=== PATIENT | male | born 1955 | race Caucasian/White ===

== ENCOUNTER → 2020-08-31 | Outpatient (CLI) | payer OTHER, SELFPAY ==
--- NOTE | 2020-08-31 08:00 | PROSBIL_PTH ---
PATIENT: NICHOLE HOOD LOC: [facility] U#:[id number] AGE/SX: 64/M ROOM: RE08/31/[address]: Dr. Sen Palmre MD : 1955 BED: DIS: 08/31/2020 SPEC #: [id number] RECD: 08/31/20 10:48 STATUS: DORETHA FREDERICK #: [id number] CESAR: 08/31/20 08:[address]: Sen Palmer DEPT: SURGICAL PATHOLOGY RECD BY: Carmina Menezes Tissues: A - PROSTATE RIGHT B - PROSTATE RIGHT C - PROSTATE RIGHT D - PROSTATE LEFT E - PROSTATE LEFT F - PROSTATE LEFT Procedures: PROSTATE BX HEADER OPERATION: Prostate biopsy PRE-OP DIAGNOSIS: Elevated PSA TISSUE SUBMITTED: A - Right apex, B - Right mid, C - Right base, D - Left apex, E - Left mid, F - Left base MICROSCOPIC DIAGNOSIS A. Right prostate, apex, core biopsy: Prostatic tissue, negative for malignancy. B. Right prostate, mid, core biopsy: Prostatic tissue, negative for malignancy. Focal mild acute and chronic inflammation. C. Right prostate, base, core biopsy: Prostatic tissue, negative for malignancy. Focal mild acute and chronic inflammation. D. Left prostate, apex, core biopsy: Prostatic tissue, negative for malignancy. Focal mild acute and chronic inflammation. E. Left prostate, mid, core biopsy: Prostatic tissue, negative for malignancy. F. Left prostate, base, core biopsy: Prostatic tissue, negative for malignancy. Focal mild chronic inflammation. SJ:bal 09/01/2020 MICROSCOPIC DESCRIPTION Slides are reviewed. GROSS DESCRIPTION A - Received is one container designated prostate, right apex. The specimen consists of two elongated fragments of light anna-white soft tissue each measuring 0.5 cm in length and 0.1 cm in diameter. The specimen is totally submitted in one cassette. B - Received is one container designated prostate, right mid. The specimen consists of two elongated fragments of light anna-white soft tissue measuring 0.9 and 1.7 cm in length and 0.1 cm in diameter. The specimen is totally submitted in one cassette. C - Received is one container designated prostate, right base. The specimen consists of two elongated fragments of light anna-white soft tissue each measuring 1 cm in length and 0.1 cm in diameter. The specimen is totally submitted in one cassette. D - Received is one container designated prostate, left apex. The specimen consists of two elongated fragments of light anna-white soft tissue each measuring 0.6 cm in length and 0.1 cm in diameter. The specimen is totally submitted in one cassette. E - Received is one container designated prostate, left mid. The specimen consists of two elongated fragments of light anna-white soft tissue measuring 0.5 and 1 cm in length and 0.1 cm in diameter. The specimen is totally submitted in one cassette. F - Received is one container designated prostate, left base. The specimen consists of two elongated fragments of light anna-white soft tissue each measuring 1 cm in length and 0.1 cm in diameter. The specimen is totally submitted in one cassette. / SJ:rg 08/31/20 TC:3 CPT: 54148 x6
== END | disposition home or self-care (01) ==
LOC: LABSPEC 10:51
PROVIDERS: Referring Provider Urology; Visit Provider Urology
DX: R97.20 Elevated prostate specific antigen [PSA] (principal)
CPT/HCPCS: 88305; G0416

== ENCOUNTER → 2021-05-27 | Outpatient (CLI) | payer OTHER, SELFPAY ==
[2021-05-27 16:28] LABS: PSA,Total- Diagnostic 5.78 ng/mL (0.0-4.0)
== END | disposition home or self-care (01) ==
LOC: LAB 15:30
PROVIDERS: PCP Family Medicine; Visit Provider Urology
DX: R97.20 Elevated prostate specific antigen [PSA] (principal)
CPT/HCPCS: 36415; 84153

== ENCOUNTER → 2021-12-06 | Outpatient (CLI) | payer MEDICARE, OTHER, SELFPAY | END | disposition home or self-care (01) | LOC: LAB 09:33 | PROVIDERS: PCP Family Medicine; Referring Provider Urology; Visit Provider Urology | DX: R97.20 Elevated prostate specific antigen [PSA] (principal) | CPT/HCPCS: 36415; 84153 ==

== ENCOUNTER → 2022-01-05 | Outpatient (CLI) | payer MEDICARE, OTHER, SELFPAY ==
--- NOTE | 2022-01-05 08:03 | MRI_ITS ---
STUDY: MR PELVIS WITH AND WITHOUT CONTRAST (PROSTATE) REASON FOR EXAM: Male, 66 years old. Elevated PSA TECHNIQUE: Standardized multiparametric prostate MRI with T1, T2, DWI/ADC sequences were obtained in 3 orthogonal planes, and dynamic contrast enhancement sequences. 19 ml of clariscan contrast material was administered intravenously for the contrast portion of the examination. . COMPARISON: None. FINDINGS: The prostate volume measures 64 mm3. The contours of the prostate gland are lobulated. There is mass effect on the bladder base. The transition zone is heterogenous. PI-RADS DWI score 2 - Hypointense within a BPH nodule on ADC. PI-RADS T2W score 2 - A mostly encapsulated nodule OR a homogeneous circumscribed nodule without encapsulation (atypical nodule) or a homogeneous mildly hypointense area between nodules.. Contrast enhancement no early or contemporaneous enhancement; or diffuse multifocal enhancement NOT corresponding to a focal finding on T2W and/or DWI or focal ehancement responding to a lesion demonstrating features of BPH onT2WI (including features of extruded BPH in the PZ). The peripheral zone is homogenous. PI-RADS DWI score 1 - No abnormality (normal) on ADC or high b-value DWI. PI-RADS T2W score 1 - Uniformaly hyperintense (normal). Contrast enhancement no early or contemporaneous enhancement; or diffuse multifocal enhancement NOT corresponding to a focal finding on T2W and/or DWI or focal enhancement responding to a lesion demonstrating features of BPH onT2WI (including features of extruded BPH in the PZ). The seminal vesicles demonstrate normal margins and T2 signal pattern. No mass lesion or invasion depicted. The rectoprostatic angles are normal. Urinary bladder is not well distended with diffuse wall thickening and trabeculation. Small bladder diverticulum. The vascular structures of the are normal. The visualized hollow viscus structures are normal. No bone marrow edema or mass lesion depicted. MRI/Pelvis W/WO Contrast IMPRESSION: 1. PIRADS v2.1 2019 -- 2 - Low (clinically significant cancer is unlikely). Electronically Signed: Ad Mullen (Brooks), at 11:41 EST ,
[2022-01-05 08:35] LABS: CREATININE FINGERSTICK < 0.9 mg/dL (0.70-1.30); EGFR FINGERSTICK > 60.0000 mL/min (>60)
== END | disposition home or self-care (01) ==
LOC: MRI 07:58
PROVIDERS: PCP Family Medicine; Referring Provider Urology; Visit Provider Urology
DX: R97.20 Elevated prostate specific antigen [PSA] (principal)
CPT/HCPCS: 72197; A9575

== ENCOUNTER → 2022-02-25 | Outpatient (CLI) | payer MEDICARE, OTHER, SELFPAY ==
[2022-02-25 15:33] LABS: Absolute Lymphocyte Count 1.38 X10^3/uL (0.83-4.51); Absolute Neutrophil Count 8.2 X10^3/uL (2.0-7.7); Basophil# 0.01 X10^3/uL; Basophil% 0.1 % (0-1); Hematocrit 46.6 % (40-54); Hemoglobin 16.2 g/dL (13.0-16.5); Lymphocyte # 1.38 X10^3/ul (0.83-4.51); Lymphocyte % 13.4 % (19-41); Mean Corp Hgb Conc 34.8 g/dL (32-36); Mean Corpuscular Hgb 32.1 pg (27.0-32.0); Mean Corpuscular Volume 92.3 fL (80-94); Mean Platelet Vol. 9.1 fl (6.2-12.0); Monocyte% 6.8 % (0-10); NRBC Flagged by Analyzer 0 % (0-5); Neutrophil # 8.19 X10^3/uL (2.7-7.7); Neutrophil % 79.3 % (47-70); Platelet Count 261 K/mm3 (150-450); RBC Distribution Width CV 11.8 % (11.6-14.6); RBC Distribution Width SD 40.1 fl (35.1-43.9); Red Blood Count 5.05 M/mm3 (4.6-6.2); White Blood Count 10.3 K/mm3 (4.4-11.0)
[2022-02-25 16:19] LABS: ALB/GLOB Ratio 0.9 RATIO (0.9-2.4); AST(SGOT) 48 U/L (15-37); Alanine Aminotransfer ALT/SGPT 42 U/L (16-61); Albumin, Serum 3.8 g/dL (3.2-5.0); Alkaline Phosphatase 101 U/L (45-117); Amylase 43 U/L (25-115); Anion Gap 9 (5-15); BUN 22 mg/dL (7-18); BUN/Creat Ratio 20.6 RATIO (10-20); Calcium,Total 9.4 mg/dL (8.5-10.1); Chloride 102 mmol/L (98-107); Creatinine, Serum 1.07 mg/dL (0.70-1.30); EST Glomerular Filtration Rate 74 mL/min (>60); Est Glom Filt Rate - Afr Amer 89 mL/min (>60); GGTP 173 U/L (15-85); Globulin 4.3 g/dL (2.2-4.2); Glucose 189 mg/dL (74-106); Lipase 109 U/L (73-393); Protein, Total 8.1 g/dL (6.4-8.2); Sodium Level 138 mmol/L (136-145)
== END | disposition home or self-care (01) ==
LOC: LAB 15:08
PROVIDERS: PCP Family Medicine; Visit Provider Nurse Practitioner Adult Health
DX: R10.13 Epigastric pain (principal); R74.8 Abnormal levels of other serum enzymes; K21.9 Gastro-esophageal reflux disease without esophagitis
CPT/HCPCS: 36415; 80053; 82150; 82977; 83690; 85025

== ENCOUNTER → 2022-03-04 | Outpatient (CLI) | payer MEDICARE, OTHER, SELFPAY ==
[2022-03-08 20:03] LABS: Pancreatic Elastase, Fecal 314 (>200)
== END | disposition home or self-care (01) ==
LOC: LABSPEC 09:09
PROVIDERS: PCP Family Medicine; Referring Provider Nurse Practitioner Adult Health; Visit Provider Nurse Practitioner Adult Health
DX: R10.13 Epigastric pain (principal); R74.8 Abnormal levels of other serum enzymes
CPT/HCPCS: 82653

== ENCOUNTER → 2022-03-17 | Outpatient (CLI) | payer MEDICARE, OTHER, SELFPAY ==
--- NOTE | 2022-03-17 08:23 | US_ITS ---
STUDY: ABDOMINAL ULTRASOUND REASON FOR EXAM: Male, 66 years old. Epigastric pain, postprandial -- RUQ TECHNIQUE: Transabdominal ultrasound was performed with real-time and static francis scale imaging. TECHNICAL QUALITY: Adequate. COMPARISON: None. FINDINGS: Liver: The liver measures 17.1 cm. There is increased echogenicity consistent with fatty infiltration. The bile ducts are within normal limits. There is hepatic color flow. The direction of portal flow is hepatopetal. There is no demonstrated mass lesion. Gallbladder: Normal distended gallbladder. The gallbladder wall measures 3.8 mm. There is a negative sonographic Justice''s sign. There is no pericholecystic fluid. There are no gallstones. Sludge seen in the gallbladder lumen. Common Bile Duct (C.B.D.): The common bile duct measures 5.7 mm. Pancreas: Normal size of the head, body and tail of the pancreas. There is normal echogenicity of the pancreas. There is no demonstrated pancreatic mass or cyst. Spleen: Normal size of the spleen. The spleen measures 10.9 cm x 4.5 cm x 3.9 cm. Right Kidney: Normal size of the right kidney. The right kidney measures 12.4 cm x 7 cm x 5.6 cm. Normal renal cortex. The right cortex measures 1.5 cm. There is no demonstrated renal mass or cyst. There is no right hydronephrosis. Left Kidney: Normal size of the left kidney. The left kidney measures 13.4 cm x 6.3 cm x 6.2 cm. Normal renal cortex. The left cortex measures 1.5 cm. There is no demonstrated renal mass or cyst. There is no left hydronephrosis. Aorta: Unremarkable I.V.C.: The IVC is patent. There is no ascites. US/Abdomen Complete IMPRESSION: Borderline hepatomegaly and fatty infiltration of the liver. Sludge is seen in the gallbladder. Electronically Signed: Matias Solorio MD at 13:40 EST ,
== END | disposition home or self-care (01) ==
LOC: US 08:22
PROVIDERS: PCP Family Medicine; Referring Provider Nurse Practitioner Adult Health; Visit Provider Nurse Practitioner Adult Health
DX: R10.13 Epigastric pain (principal); R10.11 Right upper quadrant pain; R74.8 Abnormal levels of other serum enzymes
CPT/HCPCS: 76700

== ENCOUNTER 2022-06-30 05:24 | Day surgery (SDC) | payer MEDICARE, OTHER, SELFPAY ==
[2022-06-30 05:52] VITALS: BP 133/80; PULSE 84; RESP 18; TEMP 36.9; O2SAT 98; BMI 29.0
[2022-06-30] MEDS: Lactated Ringers 1,000 ML 15 ML IV (05:59)
[2022-06-30 06:25] LABS: Bedside Glucose 109 mg/dL (74-106)
--- NOTE | 2022-06-30 06:30 | IMM_PTH ---
PATIENT: NICHOLE HOOD LOC: [facility] U#:[id number] AGE/SX: 66/M ROOM: RE06/30/[address]: Dr. Giovany Bruce DO : 1955 BED: DIS: 06/30/2022 SPEC #: [id number] RECD: 06/30/22 12:58 STATUS: DORETHA REQ #: [id number] CESAR: 06/30/22 06:[address]: Giovany Bruce DEPT: IMMUNOHISTOCHEMISTRY RECD BY: Melva Borjas ENTERED: 06/30/22 12:59 SP TYPE: IMMUNO OTHR DR: Dr. Nirav Lewis DO Tissues: B - Stomach, NOS Procedures: H Pylori (initial) PHYSICIAN & INSTITUTION [place] [id number] SPECIMEN INFORMATION: Tissue Source: B ? Gastric antrum Clinical Info: Epigastric pain, elevated liver enzymes, GERD Specimen Number: [id number] CPT code: 03502 METHODOLOGY: Deparaffinized sections of prefer/formalin-fixed tissue or PAP/DQ stained slides are incubated with monoclonal/polyclonal antibodies/oligonucleotide probes. Localization is made via biotin free immunoperoxidase method. Appropriate controls are performed and reacted as expected. Results on target cell population are indicated in the following table: RESULTS: ANTIBODY / CLONE RESULT Block B H Pylori (polyclonal) negative These tests were developed and their performance characteristics determined by [facility]. They may not have been cleared or approved by the U.S. Food and Drug Administration. The FDA has determined that such clearance or approval is not necessary. The above immunohistochemical/dualISH markers are ordered and reviewed by the Pathologist. INTERPRETATION: B. Gastric antrum, biopsy: Negative for Helicobacter pylori organisms. AM:bal 07/01/2022
--- NOTE | 2022-06-30 06:30 | EGD_PTH ---
PATIENT: NICHOLE HOOD LOC: [facility] U#:[id number] AGE/SX: 66/M ROOM: RE06/30/[address]: Dr. Giovany Bruce DO : 1955 BED: DIS: 06/30/2022 SPEC #: [id number] RECD: 06/30/22 10:05 STATUS: DORETHA RELawosn #: [id number] CESAR: 06/30/22 06:[address]: Giovany Bruce DEPT: SURGICAL PATHOLOGY RECD BY: Carmina Menezes ENTERED: 06/30/22 11:00 SP TYPE: EGD BIOPSY OT DR: Dr. Nirav Lewis DO Tissues: A - Duodenum, NOS B - Gastric mucous membrane C - Esophagus, NOS D - Transverse colon E - COLON BIOPSY Procedures: Special Stain Group II Surgery Specimen Level IV Alcian Blue/PAS (control) HEADER OPERATION: Colonoscopy, EGD ([facility] [place] PRE-OP DIAGNOSIS: Epigastric pain, elevated liver enzymes, GERD TISSUE SUBMITTED: A ? Duodenum biopsy, B ? Gastric antrum biopsy for H. pylori and path, C ? Distal esophagus biopsy, D ? Transverse colon biopsy, E ? Splenic flexure polyp biopsy MICROSCOPIC DIAGNOSIS A. Duodenum, biopsy: No pathologic change. B. Gastric antrum, biopsy: Chronic gastritis. See comment. C. Distal esophagus, biopsy: Gastroesophageal junction with chronic inflammation. Consistent with changes of reflux. No evidence of goblet cell metaplasia. See comment. D. Transverse colon, biopsy: Tubular adenoma. E. Colonic polyp at splenic flexure, biopsy: Tubular adenoma. AM:bal 07/01/2022 COMMENT B. The results of immunohistochemistry for Helicobacter pylori will be reported separately ([id number]). C. Alcian blue/PAS stain with matched control supports the above diagnosis. MICROSCOPIC DESCRIPTION Slides are reviewed. GROSS DESCRIPTION A - Received in fixative is one container labeled with the patient's name and designated duodenum biopsy. The specimen consists of two irregular fragments of light anna soft tissue that in aggregate measure 0.6 x 0.5 x 0.1 cm. The specimen is totally submitted in one cassette. B - Received in fixative is one container labeled with the patient's name and designated gastric antrum biopsy. The specimen consists of two irregular fragments of light anna soft tissue that in aggregate measure 0.6 x 0.4 x 0.1 cm. The specimen is totally submitted in one cassette. C - Received in fixative is one container labeled with the patient's name and designated distal esophagus biopsy. The specimen consists of two irregular fragments of light anna soft tissue that in aggregate measure 0.8 x 0.4 x 0.1 cm. The specimen is totally submitted in one cassette. D - Received in fixative is one container labeled with the patient's name and designated transverse colon biopsy. The specimen consists of one irregular fragment of light anna soft tissue that measures 0.5 x 0.3 x 0.1 cm. The specimen is totally submitted in one cassette. E - Received in fixative is one container labeled with the patient's name and designated splenic flexure polyp biopsy. The specimen consists of multiple irregular fragments of light anna soft tissue that in aggregate measure 1.0 x 0.4 x 0.1 cm. The specimen is totally submitted in one cassette. / SJ:rg 06/30/2022 TC:5 CPT: 16500 x5, 66630
--- NOTE | 2022-06-30 06:39 | HP.PCM_ITS ---
History and Physical Date of Admission: 06/30/22 ?66 M who presents to the office today to establish for recurrent episodes of epigastric pain. Most recent labs showed elevated liver enzymes, he reports this is the first time he has ever had abnormal liver enzymes. His first episode of epigastric pain occurred in late September 2021.? He had eaten a large meal which included barbecue ribs and cheese.? Describes pain as sharp.? He then had diarrhea for approximately 1 week.? He has had recurrent episodes of this epigastric pain which occurs after eating.? Seems to be worse if he eats a large meal.? May have increased burping then.? The severe pain may last an hour but then his stomach can be sore for days.? He also gets diarrhea with these episodes.? He tried decreasing metformin but that did not relieve his symptoms.? He tried stopping omeprazole, noted increased burping but no change in his symptoms otherwise.? He has been on Prilosec for years for heartburn.? At the start of summer 2021 he started a diet and lost approximately 10 pounds intentionally.? He lost more weight because he decreased his intake to try to help with the epigastric pain.? Pain did not radiate initially but has radiated through to the back on at least 1 occasion recently.? No nausea, vomiting, dysphagia.? No melena or hematochezia. No prior EGD. It was recommended he have a colonoscopy every 5 yrs due to brother's hx of colon cancer in his 20s (treated successfully with surgery). His last colonoscopy was approx age 61, had one polyp. ROS Const Constitutional: Positive for weight change; No fatigue ENT ENT: No difficulty swallowing Gastro GI: Positive for bloating, constipation, excessive flatus and Blood in stool; No abdominal pain, belching, change in bowel habits, change in stool character, coffee ground emesis, cramping, diarrhea, heartburn, difficulty swallowing, feeling full early, incontinent of stools, Vomiting blood/hematemesis, loose stools, Black,tarry stools, nausea/dyspepsia, pain with swallowing, vomiting or other Musc Musculoskeletal: No joint pain Skin Skin: No yellowing of the eye or itchy eyes Psych Psychiatric: No anxiety and No depression Endo Endocrine: Positive for weight change; No fatigue Aller/Imm Allergy/Immunologic: No itchy eyes Mike/Lymp Hematologic/Lymphatic: No easy bleeding or easy bruising Exam Const General: cooperative and healthy appearing Nutritional Appearance: overweight Orientation: alert, awake and oriented x3 HENMT Head: normal to inspection Eyes Sclera: sclerae normal Chest Chest palpation & inspection: normal inspection of the chest Resp Effort & Inspection: normal respiratory effort GI Inspection: normal to inspection Palpation: soft, no masses and nontender General: bladder normal to palpation Skin General: no rashes or lesions noted Assessment and Plan Assessment and Plan (1) Epigastric pain: ?Status:?Chronic ?Plan: 66-year-old male with recurrent episodes of postprandial epigastric pain and diarrhea, as well as elevated liver enzymes DDx includes gallbladder disorder, biliary obstruction, EPI We will start with a RUQ US Consider HIDA Consider MRCP Labs today He will be scheduled for EGD and colonoscopy, with follow-up in office 2 weeks later (2) Elevated liver enzymes: ?Status:?Acute ?Plan: See above (3) Gastroesophageal reflux disease: ?Plan: He will continue his omeprazole that he has taken for years ? ? ? Orders: Orders Amylase 02/25/22 R10.13 - Epigastric pain, R74.8 - Abnormal levels of other serum enzymes ? Comprehensive Metabolic Profil 02/25/22 R10.13 - Epigastric pain, R74.8 - Abnormal levels of other serum enzymes ? GGTP 02/25/22 R10.13 - Epigastric pain, R74.8 - Abnormal levels of other serum enzymes ? Lipase 02/25/22 R10.13 - Epigastric pain, R74.8 - Abnormal levels of other serum enzymes ? CBC W/Diff, Automated 02/25/22 K21.9 - Gastro-esophageal reflu x disease without esophagitis, R10.13 - Epigastric pain, R74.8 - Abnormal levels of other serum enzymes ? Pancreatic Elastase, Fecal 02/25/22 R10.13 - Epigastric pain, R74.8 - Abnormal levels of other serum enzymes ? Abdomen Complete 02/25/22 R10.13 - Epigastric pain, R74.8 - Abnormal levels of other serum enzymes ? I have examined the patient and the H&P has been reviewed. There are no clinical changes since date of exam.
[2022-06-30 07:10] VITALS: BP 106/66; BP 133/80; PULSE 64; RESP 18; TEMP 36.7; O2SAT 98
[2022-06-30 07:15] VITALS: BP 111/66; BP 133/80; PULSE 82; RESP 18; O2SAT 97
--- NOTE | 2022-06-30 07:16 | OP.EGD_ITS ---
Patient Name: Yuriy Meneses Procedure Date: 06/30/2022 6:21 AM Date of : 1955 Age: 66 Procedure: Upper GI endoscopy Indications: Epigastric abdominal pain, Heartburn Providers: Giovany Bruce DO Referring MD: Giovany Bruce DO Medicines: Monitored Anesthesia Care Patient Profile: This is a 66 year old male. Refer to note in patient chart for documentation of history and physical. Patient has symptoms of chronic epigastric abdominal pain. Complications: No immediate complications. Procedure: Pre-Anesthesia Assessment: - Prior to the procedure, a History and Physical was performed, and patient medications and allergies were reviewed. The patient is competent. The risks and benefits of the procedure and the sedation options and risks were discussed with the patient. All questions were answered and informed consent was obtained. Patient identification and proposed procedure were verified by the physician in the pre-procedure area. Mental Status Examination: alert and oriented. Airway Examination: normal oropharyngeal airway and neck mobility. Respiratory Examination: clear to auscultation. CV Examination: normal. Prophylactic Antibiotics: The patient does not require prophylactic antibiotics. Prior Anticoagulants: The patient has taken no previous anticoagulant or antiplatelet agents. ASA Grade Assessment: II - A patient with mild systemic disease. After reviewing the risks and benefits, the patient was deemed in satisfactory condition to undergo the procedure. The anesthesia plan was to use monitored anesthesia care (MAC). Immediately prior to administration of medications, the patient was re-assessed for adequacy to receive sedatives. The heart rate, respiratory rate, oxygen saturations, blood pressure, adequacy of pulmonary ventilation, and response to care were monitored throughout the procedure. The physical status of the patient was re-assessed after the procedure. After obtaining informed consent, the endoscope was passed under direct vision. Throughout the procedure, the patient's blood pressure, pulse, and oxygen saturations were monitored continuously. The Colonoscope was introduced through the mouth, and advanced to the second part of duodenum. The upper GI endoscopy was accomplished without difficulty. The patient tolerated the procedure well. Scope In: 6:44:31 AM Scope Out: 6:49:33 AM Total Procedure Duration Time 0 hours 5 minutes 2 seconds Findings: The Z-line was irregular and was found 41 cm from the incisors. Red blood was found in the stomach. Multiple 8 mm pedunculated and sessile polyps with bleeding and stigmata of recent bleeding were found in the gastric body. Coagulation for hemostasis using heater probe was successful. Estimated blood loss was minimal. Patchy mildly erythematous mucosa without bleeding was found in the gastric antrum. Biopsies were taken with a cold forceps for histology. Verification of patient identification for the specimen was done. Estimated blood loss was minimal. The second portion of the duodenum was normal. Biopsies were taken with a cold forceps for histology. Verification of patient identification for the specimen was done. Estimated blood loss was minimal. Impression: - Z-line irregular, 41 cm from the incisors. - Red blood in the stomach. - Multiple gastric polyps. Treated with a heater probe. - Erythematous mucosa in the antrum. Biopsied. - Normal second portion of the duodenum. Biopsied. Recommendation: - Discharge patient to home. - Resume previous diet. - Continue present medications. - Await pathology results. Procedure Code(s): --- Professional --- 74037, 59, Esophagogastroduodenoscopy, flexible, transoral; with control of bleeding, any method 63201, Esophagogastroduodenoscopy, flexible, transoral; with biopsy, single or multiple CPT copyright 2017 [employer]. All rights reserved. The codes documented in this report are preliminary and upon consumer attorney review may be revised to meet current compliance requirements. Giovany Bruce DO 06/30/2022 7:15:11 AM This report has been signed electronically. Number of Addenda: 0 Note Initiated On: 06/30/2022 6:21 AM
--- NOTE | 2022-06-30 07:16 | OP.CCLET_ITS ---
06/30/2022 Nirav Lewis Re : Upper GI endoscopy procedure for Yuriy Edwardsr Debbie This procedure was performed on June. My impressions and recommendations are as follows: Impressions : - Z-line irregular, 41 cm from the incisors. - Red blood in the stomach. - Multiple gastric polyps. Treated with a heater probe. - Erythematous mucosa in the antrum. Biopsied. - Normal second portion of the duodenum. Biopsied. Recommendations : - Discharge patient to home. - Resume previous diet. - Continue present medications. - Await pathology results. My findings are described in the full procedure note, which is enclosed. If I can be of further assistance, please feel free to contact me at . Sincerely, Giovany Bruce, 06/30/2022 7:15:11 AM This report has been signed electronically.
--- NOTE | 2022-06-30 07:19 | OP.CCLET_ITS ---
06/30/2022 Nirav Lewis Re : Colonoscopy procedure for Yuriy Meneses Dear Debbie This procedure was performed on June. My impressions and recommendations are as follows: Impressions : - Two 1 to 2 mm polyps at the splenic flexure and in the transverse colon, removed with a cold snare. Resected and retrieved. - Diverticulosis in the recto-sigmoid colon, in the sigmoid colon and in the ascending colon. - The examination was otherwise normal on direct and retroflexion views. Recommendations : - Discharge patient to home. - Resume previous diet. - Continue present medications. - Await pathology results. - Repeat colonoscopy in 5 years for surveillance. My findings are described in the full procedure note, which is enclosed. If I can be of further assistance, please feel free to contact me at . Sincerely, Giovany Bruce, 06/30/2022 7:18:36 AM This report has been signed electronically.
--- NOTE | 2022-06-30 07:19 | OP.COLON_ITS ---
Patient Name: Yuriy Meneses Procedure Date: 06/30/2022 6:49 AM Date of : 1955 Age: 66 Procedure: Colonoscopy Indications: Screening in patient at increased risk: Family history of 1st-degree relative with colorectal cancer before age 60 years Providers: Giovany Bruce DO Referring MD: Giovany Bruce DO Medicines: Monitored Anesthesia Care Patient Profile: This is a 66 year old male. Refer to note in patient chart for documentation of history and physical. Patient has symptoms of chronic epigastric abdominal pain. Last Colonoscopy: date unknown. Unable to locate last colonoscopy report. Complications: No immediate complications. Procedure: Pre-Anesthesia Assessment: - Prior to the procedure, a History and Physical was performed, and patient medications and allergies were reviewed. The patient is competent. The risks and benefits of the procedure and the sedation options and risks were discussed with the patient. All questions were answered and informed consent was obtained. Patient identification and proposed procedure were verified by the physician in the pre-procedure area. Mental Status Examination: alert and oriented. Airway Examination: normal oropharyngeal airway and neck mobility. Respiratory Examination: clear to auscultation. CV Examination: normal. Prophylactic Antibiotics: The patient does not require prophylactic antibiotics. Prior Anticoagulants: The patient has taken no previous anticoagulant or antiplatelet agents. ASA Grade Assessment: II - A patient with mild systemic disease. After reviewing the risks and benefits, the patient was deemed in satisfactory condition to undergo the procedure. The anesthesia plan was to use monitored anesthesia care (MAC). Immediately prior to administration of medications, the patient was re-assessed for adequacy to receive sedatives. The heart rate, respiratory rate, oxygen saturations, blood pressure, adequacy of pulmonary ventilation, and response to care were monitored throughout the procedure. The physical status of the patient was re-assessed after the procedure. After I obtained informed consent, the scope was passed under direct vision. Throughout the procedure, the patient's blood pressure, pulse, and oxygen saturations were monitored continuously. The Colonoscope was introduced through the anus and advanced to the terminal ileum. The colonoscopy was performed without difficulty. The patient tolerated the procedure well. The quality of the bowel preparation was adequate. Scope In: 6:51:55 AM Scope Withdrawal Time 0 hours 10 minutes 10 seconds Scope Out: 7:06:22 AM Total Procedure Duration Time 0 hours 14 minutes 27 seconds Findings: Two sessile polyps were found in the splenic flexure and transverse colon. The polyps were 1 to 2 mm in size. These polyps were removed with a cold snare. Resection and retrieval were complete. Verification of patient identification for the specimen was done. Estimated blood loss was minimal. A few small and large-mouthed diverticula were found in the recto-sigmoid colon, sigmoid colon and ascending colon. The exam was otherwise without abnormality on direct and retroflexion views. Impression: - Two 1 to 2 mm polyps at the splenic flexure and in the transverse colon, removed with a cold snare. Resected and retrieved. - Diverticulosis in the recto-sigmoid colon, in the sigmoid colon and in the ascending colon. - The examination was otherwise normal on direct and retroflexion views. Recommendation: - Discharge patient to home. - Resume previous diet. - Continue present medications. - Await pathology results. - Repeat colonoscopy in 5 years for surveillance. Procedure Code(s): --- Professional --- 79574, Colonoscopy, flexible; with removal of tumor(s), polyp(s), or other lesion(s) by snare technique CPT copyright 2017 [employer]. All rights reserved. The codes documented in this report are preliminary and upon remote coders review may be revised to meet current compliance requirements. Giovany Bruce DO 06/30/2022 7:18:36 AM This report has been signed electronically. Number of Addenda: 0 Note Initiated On: 06/30/2022 6:49 AM
[2022-06-30 07:20] VITALS: BP 111/66; BP 133/80; PULSE 78; RESP 18; O2SAT 97
[2022-06-30 07:25] VITALS: BP 125/69; BP 133/80; PULSE 74; TEMP 36.8; O2SAT 98
[2022-06-30 07:35] VITALS: BP 133/80
== END 2022-06-30 07:55 | disposition home or self-care (01) ==
LOC: EN 05:24 → AC 05:26
PROVIDERS: PCP Family Medicine; Referring Provider Family Medicine; Visit Provider Internal Medicine Gastroenterology
PROC: 0DJD8ZZ Inspection of Lower Intestinal Tract, Via Natural or Artificial Opening Endoscopic (ICD-10-PCS; CPT 45378; principal; 2022-06-30 06:25)
DX: Z12.11 Encounter for screening for malignant neoplasm of colon (principal); E11.9 Type 2 diabetes mellitus without complications; Z79.84 Long term (current) use of oral hypoglycemic drugs; K57.30 Diverticulosis of large intestine without perforation or abscess without bleeding; Z80.0 Family history of malignant neoplasm of digestive organs; K31.7 Polyp of stomach and duodenum; K21.00 Gastro-esophageal reflux disease with esophagitis, without bleeding; K29.50 Unspecified chronic gastritis without bleeding; D12.3 Benign neoplasm of transverse colon; I10 Essential (primary) hypertension; Z79.899 Other long term (current) drug therapy
CPT/HCPCS: 45385; 43239; 43255; 82962; 88305; 88313; 88342; J7120; J2405

== ENCOUNTER → 2022-07-15 | Outpatient (CLI) | payer MEDICARE, OTHER, SELFPAY ==
[2022-07-15 16:14] LABS: PSA,Total- Diagnostic 4.79 ng/mL (0.0-4.0)
== END | disposition home or self-care (01) ==
PROVIDERS: PCP Family Medicine; Referring Provider Urology; Visit Provider Urology
DX: R97.20 Elevated prostate specific antigen [PSA] (principal)
CPT/HCPCS: 36415; 84153

== ENCOUNTER → 2022-07-27 | Outpatient (CLI) | payer MEDICARE, OTHER, SELFPAY ==
--- NOTE | 2022-07-27 07:52 | NM_ITS ---
CLINICAL: 66-year-old male with history of right upper quadrant abdominal-epigastric pain. RADIONUCLIDE HEPATOBILIARY SCINTIGRAPHY COMPARISON: Abdominal ultrasound report 03/17/2022 FINDINGS: Following the intravenous administration of 5.4 mCi of 99m Tc Mebrofenin, hepatobiliary images reveal: 1. Relatively prompt and homogeneous radiopharmaceutical concentration is noted by a normal sized liver. No parenchymal defects are identified. 2. Gallbladder activity is identified at 30 minutes post radiopharmaceutical administration. 3. Small intestinal tract is not visualized during 60 minutes of pre-CCK sequential imaging. Small bowel activity is identified following the administration of cholecystokinin. 4. Washout of the radiopharmaceutical by the hepatic parenchyma occurs in a normal fashion on qualitative inspection. Cholecystokinin (0.02 ug/kg) was administered intravenously over a 3-minute period. The post CCK gallbladder ejection fraction calculated at 20 minutes following Cholecystokinin administration was noted to be 18.0 % (normal greater than 35%). NM/Hepatobilliary Img w/Pharm Int IMPRESSION: 1. ABNORMAL 99m Tc Mebrofenin hepatobiliary imaging examination with Cholecystokinin. A. A gallbladder ejection fraction calculated to be less than 35% following the administration of Cholecystokinin is consistent with the presence of functional hepatobiliary disease (gallbladder and/or sphincter of Oddi dyskinesia) and/or organic hepatobiliary disease (chronic acalculous cholecystitis and/or cystic duct syndrome) in patients with intermediate to high pretest likelihoods of hepatobiliary illness. (Edvin Starkey et al, Journal of Nuclear Medicine 32:1695, 1991). Electronically Signed: Perez Swenson, at 8:25 EDT ,
== END | disposition home or self-care (01) ==
LOC: NM 07:52
PROVIDERS: PCP Family Medicine; Referring Provider Nurse Practitioner Adult Health; Visit Provider Nurse Practitioner Adult Health
DX: R10.11 Right upper quadrant pain (principal)
CPT/HCPCS: 78227; A9537; J2805

== ENCOUNTER 2022-10-30 14:11 | Inpatient (IN) | payer MEDICARE, OTHER, SELFPAY ==
[2022-10-30 14:15] VITALS: BP 143/92; PULSE 94; RESP 18; TEMP 37.1; O2SAT 97; BMI 30.3
--- NOTE | 2022-10-30 14:51 | CT_ITS ---
EXAM: CT ABDOMEN AND PELVIS WITH INTRAVENOUS CONTRAST CLINICAL INDICATION: jaundice and swelling -- IV PO Contrast TECHNIQUE: Helically acquired images were obtained of the abdomen and pelvis with intravenous contrast. This CT exam was performed using one or more of the following dose reduction techniques: automated exposure control, adjustment of the mA and/or kV according to patient size, and/or use of iterative reconstruction technique. CONTRAST: Oral and amp; IV Gastrografin and amp; 100mL [id number] COMPARISON: Abdominal ultrasound, 03/17/2022. MRI pelvis, 01/05/2022. FINDINGS: LOWER THORAX: No significant abnormality. Lung bases are clear. No cardiomegaly. No significant pericardial effusion. ABDOMEN: LIVER: No significant abnormality. Homogeneous. No focal mass. GALLBLADDER AND BILE DUCTS: Cholelithiasis and gallbladder wall thickening with minimal pericholecystic edema. No intra- or extrahepatic biliary ductal dilation. PANCREAS: No significant abnormality. No focal cystic or solid mass. SPLEEN: No significant abnormality. Normal size without focal cystic or solid mass. ADRENALS: No significant abnormality. No nodules. KIDNEYS AND URETERS: Left kidney extrarenal pelvis. No hydronephrosis. No urolithiasis. Normal renal size and position. STOMACH AND BOWEL: No significant abnormality. No stomach or bowel distention. No focal inflammatory change. PELVIS: APPENDIX: No evidence of acute appendicitis. BLADDER: Left-sided urinary bladder diverticulum. REPRODUCTIVE: Prostatomegaly. ABDOMEN and PELVIS: INTRAPERITONEAL SPACE: No significant abnormality. No ascites or other fluid collection. No free air. BONES/JOINTS: Degenerative changes in the spine, pelvis, and hips. No suspicious lytic or blastic abnormality. SOFT TISSUES: Small fat-containing umbilical hernia. VASCULATURE: No significant abnormality. Abdominal aorta is non-dilated. LYMPH NODES: No significant abnormality. No enlarged lymph nodes. CT/Abdomen/Pelvis WITH Contrast IMPRESSION: 1. Cholelithiasis and gallbladder wall thickening with minimal pericholecystic edema. Findings may be indicative of acute cholecystitis. Correlate clinically and consider right upper quadrant ultrasound. 2. Prostatomegaly. 3. Left-sided urinary bladder diverticulum. Electronically Signed: Devaughn Estrada DO at 16:52 EDT ,
--- NOTE | 2022-10-30 15:06 | EDS_ITS ---
HPI History of Present Illness Chief Complaint: Complaint Informant: patient and spouse/S.O. Narrative Narrative: 67-year-old male presenting to the emergency department the chief complaint of jaundice and abdominal pain. Patient states he has been having gallbladder attacks. He has been seeing gastroenterology (Dr. Bruce). He has had a gallbladder ultrasound endoscopy and most recently a HIDA scan. He had seen Dr. Kaplan for general surgery. The HIDA scan showed decreased ejection fraction and he stated that he was told he will need a cholecystectomy. He does have a history of GERD. The pain has been associated with eating approximately 30 minutes postprandial the patient states he last had a gallbladder attack which she describes as right upper quadrant pain on Monday. He states his urine turned rather dark yesterday and he feels diffuse itching of his skin. Patient and weight loss and weight gain over the past year. He does have a history of diabetes hypertension as well as GERD. At the current time he notes no significant pain. [facility] Medical History Abdominal pain CPAP (continuous positive airway pressure) dependence Diabetes Dietary restriction Epigastric pain GERD (gastroesophageal reflux disease) Glaucoma Hypertension Non-smoker Prostate disease Wears contact lenses Wears hearing aid Home Medications eszopiclone 2 mg tablet (Lunesta) 2 mg PO QHS 12/14/21 [History Last Taken Unknown] lorazepam 2 mg tablet 2 mg PO QHS PRN Sleep 12/14/21 [History Last Taken Unknown] metformin 500 mg tablet 500 mg PO DAILY 12/14/21 [History Last Taken Unknown] atorvastatin 20 mg tablet 20 mg PO DAILY 02/25/22 [History Last Taken Unknown] betamethasone dipropionate 0.05 % topical cream 1 applic topical DAILY PRN Skin Cleansing 02/25/22 [History Last Taken Unknown] dutasteride 0.5 mg capsule 0.5 mg PO DAILY 02/25/22 [History Last Taken Unknown] fluoxetine 10 mg capsule 10 mg PO DAILY 02/25/22 [History Last Taken Unknown] telmisartan 40 mg tablet 40 mg PO QHS 02/25/22 [History Last Taken Unknown] omega 6-odx-kps-fish oil 300 mg-1,000 mg capsule (Fish Oil) 1 cap PO DAILY 04/08/22 [History Last Taken 06/27/22] dorzolamide 2 % eye drops 1 drp EACH EYE BID 06/27/22 [History Last Taken Unknown] latanoprost 0.005 % eye drops 1 drp EACH EYE QPM 06/27/22 [History Last Taken Unknown] timolol maleate 0.25 % eye drops 1 drp EACH EYE BID 06/27/22 [History Last Taken Unknown] pantoprazole 40 mg tablet,delayed release 40 mg PO QHS 06/30/22 [History Last Taken Unknown] dicyclomine 20 mg tablet 20 mg PO TID PRN abdominal pain #60 tabs 07/15/22 [Rx Last Taken Unknown] Allergy/AdvReac Type Severity Reaction Status Date / Time No Known Allergies Allergy Verified 10/30/22 14:14 Family History Father Asthma Mother Diabetes Brother Colon cancer Surgical History Hx of colonoscopy Social History Smoking Status: Never smoker ROS ROS ED Constitutional Constitutional ED: Denies chills, fever(s) or weight loss Eyes Eyes: Denies blurry vision, change in vision or diplopia ENT ENT ED: Denies ear pain, rhinorrhea or sore throat Cardiovascular Cardiovascular: Denies chest pain, orthopnea, palpitations or racing heartbeat Respiratory/Chest Respiratory/Chest: Denies cough, dyspnea or orthopnea Gastrointestinal Gastrointestinal: Reports abdominal pain, nausea and vomiting; Denies con stipation, diarrhea or melena Genitourinary Genitourinary ED: Reports other Details: Dark urine ; Denies dysuria, hematuria or urinary frequency Musculoskeletal Musculoskeletal: Reports back pain; Denies arthralgias or myalgias Integumentary Reports other Details: Skin itching yellowing of skin ; Denies abscess or rash Neurologic Neurologic: Denies headache(s), paresthesias or weakness Psychiatric Psychiatric: Denies anxiety, depression, suicidal ideation or suicidal thoughts Endocrine Endocrinology: Denies polydipsia, polyphagia or polyuria Allergic/Immunologic Allergic/Immunologic ED: Denies mouth swelling, tongue swelling or urticaria EXAM Physical Exam Const Vital Signs: 10/30/22 14:15 10/30/22 16:12 Temperature 98.7 F Temperature Source Temporal Pulse Rate 94 Respiratory Rate 18 18 Blood Pressure 143/92 H Blood Pressure Mean 109 Pulse Ox 97 Oxygen Delivery Method Room Air Positive well nourished and well developed General Appearance ED: well developed HEENT Reports normocephalic, head/scalp atraumatic and moist mucous membranes Eyes PERRL and EOMs intact bilaterally General Eye ED: Yes scleral icterus Neck no lymphadenopathy, supple and no JVD Resp normal respiratory effort and clear to auscultation bilaterally Cardio regular rate, regular rhythm and no murmurs GI normal to inspection, nondistended, normoactive bowel sounds and non-tender Palpation: soft Back/Spine no CVA tenderness and normal ROM Extremity normal to inspection General Extremety ED: Negative for edema General Extremity: Negative for edema Neuro oriented x3 and CN's II-XII intact bilaterally Sensorium / Orientation: alert Motor Exam: strength 5/5 throughout Psych mental status grossly normal Mood & Affect: Negative for depressed or tearful Skin no rashes or lesions noted and no wounds MDM MDM MDM Narrative Medical decision making narrative: White count 7.2. There is evidence of biliary obstruction with a total bilirubin of 5 AST 124 ALT 289 alk phos 297. Lipase slightly elevated at 194 with an amylase of 123. Glucose is elevated at 209 urinalysis shows bilirubin but no overt infection. He has remained pain-free. CT abdomen pelvis was obtained. Please see the radiologist read for that but essentially concern for pericholecystic fluid and gallstones. No obvious pancreatic mass was seen. Formal gallbladder ultrasound was obtained. Please see the radiologist read. Patient has remained pain-free. I spoke with Dr. Lam from general surgery. He is come in and evaluated the patient. We also spoke with Dr. Bruce from gastroenterology. While these consults are being obtained patient received a dose of Zosyn. Our plan will be admission into the hospital under the medical service. Lab Data Attestation: I reviewed the patient's lab results. Labs: Laboratory Results - last 24 hr 10/30/22 10/30/22 15:00 15:59 WBC 7.2 RBC 4.99 Hgb 16.0 Hct 46.7 MCV 93.6 MCH 32.1 H MCHC 34.3 RDW Std Deviation 42.4 RDW Coeff of Tejinder 12.3 Plt Count 250 MPV 9.0 Immature Gran % (Auto) 0.300 Neut % (Auto) 65.9 Lymph % (Auto) 23.5 Bradley % (Auto) 9.0 Eos % (Auto) 1.2 Baso % (Auto) 0.1 Absolute Neuts (auto) 4.8 Absolute Lymphs (auto) 1.70 Nucleated RBC % 0 Sodium 137 Potassium 3.7 Chloride 102 Carbon Dioxide 29.0 Anion Gap 6 BUN 13 Creatinine 1.03 Estim Creat Clear Calc 77.43 Est GFR (MDRD) Af Amer 93 Est GFR (MDRD) Non-Af 77 BUN/Creatinine Ratio 12.6 Glucose 209 H Calcium 8.8 Total Bilirubin 5.00 H Direct Bilirubin 3.94 H AST 124 H ALT 289 H Alkaline Phosphatase 297 H Total Protein 7.1 Albumin 3.6 Globulin 3.5 Amylase 123 H Lipase 194 H Urine Color Yellow Urine Clarity Sl. Cloudy Urine pH 6.0 Ur Specific [place] 1.015 Urine Protein 15 H Urine Glucose (UA) 100 H Urine Ketones Negative Urine Occult Blood Negative Urine Nitrite Negative Urine Bilirubin 3 H Urine Urobilinogen 4 H Ur Leukocyte Esterase 25 H Urine RBC 0 SEEN Urine WBC 0-5 SEEN Ur Squamous Epith Cells 0-5 SEEN Amorphous Sediment 1+ URATE Urine Bacteria 0 SEEN Urine Mucus 0 SEEN Radiography Diagnostic Testing: Clinical Impression(s) from Imaging Studies Abdomen/Pelvis CT 10/30/22 14:51 IMPRESSION: 1. Cholelithiasis and gallbladder wall thickening with minimal pericholecystic edema. Findings may be indicative of acute cholecystitis. Correlate clinically and consider right upper quadrant ultrasound. 2. Prostatomegaly. 3. Left-sided urinary bladder diverticulum. Electronically Signed: Devaughn Estrada DO at 16:52 EDT , Gallbladder Ultrasound 10/30/22 16:40 IMPRESSION: 1. Gallbladder wall thickening, pericholecystic fluid, stones highly suggestive of acute cholecystitis despite a negative sonographic Justice sign. 2. Intrahepatic biliary ductal dilatation is nonspecific. No significant dilation of the common bile duct. Electronically Signed: Devaughn Estrada DO at 18:36 EDT , Differential Diagnosis Abdominal Pain: Appendicitis, Cholecystitis, Pancreatitis and Bowel obstruction Management Discussion w/another healthcare provider: Hospitalist and [employer] (General surgery and gastroenterology) Discharge Plan Dx/Rx/DC Orders Clinical Impression: Diabetes, Jaundice, Biliary obstruction, Cholelithiasis Disposition Disposition: Acute Care Hospital [facility]
[2022-10-30 15:11] LABS: Absolute Neutrophil Count 4.8 X10^3/uL (2.0-7.7); Basophil# 0.01 X10^3/uL; Basophil% 0.1 % (0-1); Eosinophil# 0.09 X10^3/uL; Eosinophils% 1.2 % (0-5); Hematocrit 46.7 % (40-54); Lymphocyte % 23.5 % (19-41); Mean Corp Hgb Conc 34.3 g/dL (32-36); Mean Corpuscular Hgb 32.1 pg (27.0-32.0); Mean Corpuscular Volume 93.6 fL (80-94); Monocyte# 0.65 X10^3/uL; NRBC Flagged by Analyzer 0 % (0-5); Neutrophil # 4.75 X10^3/uL (2.7-7.7); Neutrophil % 65.9 % (47-70); Platelet Count 250 K/mm3 (150-450); RBC Distribution Width CV 12.3 % (11.6-14.6); RBC Distribution Width SD 42.4 fl (35.1-43.9); Red Blood Count 4.99 M/mm3 (4.6-6.2); White Blood Count 7.2 K/mm3 (4.4-11.0)
[2022-10-30 15:37] LABS: AST(SGOT) 124 U/L (15-37); Alanine Aminotransfer ALT/SGPT 289 U/L (16-61); Albumin, Serum 3.6 g/dL (3.2-5.0); Alkaline Phosphatase 297 U/L (45-117); Amylase 123 U/L (25-115); Anion Gap 6 (5-15); BUN 13 mg/dL (7-18); BUN/Creat Ratio 12.6 RATIO (10-20); Bilirubin, Direct 3.94 mg/dL (0.00-0.30); Calcium,Total 8.8 mg/dL (8.5-10.1); Chloride 102 mmol/L (98-107); Creatinine, Serum 1.03 mg/dL (0.70-1.30); EST Glomerular Filtration Rate 77 mL/min (>60); Est Glom Filt Rate - Afr Amer 93 mL/min (>60); Estimated Creatinine Clearance 77.43 ml/min; Globulin 3.5 g/dL (2.2-4.2); Glucose 209 mg/dL (74-106); Lipase 194 U/L (13-75); Potassium 3.7 mmol/L (3.5-5.1); Protein, Total 7.1 g/dL (6.4-8.2); Sodium Level 137 mmol/L (136-145)
[2022-10-30 16:10] LABS: Bacteria 0 SEEN /hpf (None Seen); Mucous, Urine 0 SEEN /hpf (<or=2+); Red Blood Cells-Urine 0 SEEN /hpf (0-5)
[2022-10-30 16:12] VITALS: RESP 18
[2022-10-30 16:16] LABS: Color, Urine Yellow (Yellow); Glucose, Dipstick 100 mg/dl (Normal); Ketone-Dipstick Negative (Negative); Leukocyte Esterase-Dipstick 25 /ul (Negative); Nitrite-Dipstick Negative (Negative); Occult Blood-Urine Negative /ul (Negative); Protein-Dipstick 15 mg/dl (Negative); Specific Gravity, Urine 1.015 (1.002-1.030); Urine Clarity Sl. Cloudy (Clear); Urine Urobilinogen 4 mg/dl (Normal)
[2022-10-30 16:31] LABS: Urine Bilirubin Dipstick 3 mg/dL (Negative)
[2022-10-30 16:35] LABS: White Blood Cells 0-5 SEEN /hpf (0-5)
[2022-10-30 16:36] LABS: Amorphous Sediment 1+ URATE; Squamous Epithelial Cells - UA 0-5 SEEN /hpf (0-5)
--- NOTE | 2022-10-30 16:40 | US_ITS ---
EXAM: US ABDOMEN LIMITED, RIGHT UPPER QUADRANT CLINICAL INDICATION: acute cholecystitis / biliary obstrution TECHNIQUE: Real-time ultrasound of the right upper quadrant with image documentation. COMPARISON: CT abdomen and pelvis on the same date. FINDINGS: LIVER: The liver is moderately enlarged measuring 19 cm. Evidence of intrahepatic biliary ductal dilatation. No focal hepatic abnormality. Diffuse increased echogenicity of the liver. GALLBLADDER: Negative sonographic Justice sign. Multiple gallstones are present. The gallbladder wall is thickened measuring 5.3 mm. Pericholecystic fluid is identified. Apparent layering sludge within the gallbladder lumen is also identified. COMMON BILE DUCT: The common bile duct is normal measuring approximately 5.8 mm in diameter. PANCREAS: Normal as visualized. No focal abnormality is demonstrated in the pancreas. No pancreatic ductal dilatation. RIGHT KIDNEY: No significant abnormality. There is no hydronephrosis. No shadowing calculus. No focal lesion or perinephric collection is demonstrated. US/Gallbladder IMPRESSION: 1. Gallbladder wall thickening, pericholecystic fluid, stones highly suggestive of acute cholecystitis despite a negative sonographic Justice sign. 2. Intrahepatic biliary ductal dilatation is nonspecific. No significant dilation of the common bile duct. Electronically Signed: Devaughn Estrada DO at 18:36 EDT ,
--- NOTE | 2022-10-30 20:10 | EX.PCM.CON.S ---
Assessment & Plan Assessment/Plan (1) Cholelithiasis: (2) Jaundice: (3) Elevated liver enzymes: PLAN: Plan Patient is a 67-year-old male who presents due to observations of dark urine and new jaundice with a clinical picture concerning for possible choledocholithiasis with cholecystitis, however, patient's exam and remainder clinical picture did not completely match this diagnosis. Mr. Hood and his relate a history of epigastric discomfort under evaluation for the last 13 months and a recent episode 2 days ago, however, Mr. Hood has no tenderness on exam today despite significant gallbladder wall thickening and pericholecystic fluid. Further, neither CT imaging nor ultrasound demonstrated a common bile duct stone or even dilatation of the common bile duct. With the patient's hyperbilirubinemia and elevated direct bilirubin I am concerned for a obstructive biliary process, however, with patient's atypical presentation I believe that other etiologies need to be excluded first. Therefore, it is my recommendation patient is admitted to medicine with a consult to gastroenterology. Patient's case was reviewed with fixed assets accountant Dr. Bruce, who is committed to seeing patient for further work-up. This recommendation was shared with the patient along with hand drawings of the relevant anatomy to more fully illustrate the work-up suggested. From a surgical standpoint recommend clear liquid diet tonight and n.p.o. after midnight. Additionally recommend: ? Repeat CMP and lipase in a.m. ? Empiric antibiotic coverage to cover enterics for possible biliary obstruction HPI Consult Data Date of Consult: 10/30/22 HPI Narrative Reason for Consultation: Concern for possible cholecystitis and choledocholithiasis HPI Narrative: NICHOLE HOOD, is a 67 M who presents to [facility] with his due to complaints of dark urine, itchiness, and jaundice. Mr. Hood states that 2 days ago he experienced some epigastric discomfort that was so intense it kept him from sleep, but then it began to spontaneously remit and left him simply itchy. He does recall that there were some chills then yesterday. However, he denies any pain, nausea, vomiting, or chills today. His ER work-up is notable for CBC without leukocytosis and CMP that shows cholestatic pattern to the LFTs with hyperbilirubinemia that is primarily direct at 3.94. CT imaging of the abdomen pelvis showed a thickened gallbladder wall with radiodense stones. Reflex ultrasound showed evidence of gallbladder wall thickening to 5 mm with pericholecystic fluid but the common bile duct was notably normal at 5.8 mm. Mr. Hood and his share that the work-up for his epigastric discomfort has been a long time and coming. Mr. Hood shares that his symptoms began most significantly September 2021. He states that he had the symptoms rather regularly until January 20, 2022 (he notes that he was keeping a log of his symptoms during this time). He then met with Ms. Juarez of gastroenterology February 27, 2022 on referral from his primary care provider Dr. Gastelum due to increased liver enzymes and postprandial pain. At that visit they pursued ultrasound imaging of the gallbladder and also scheduled an EGD and colonoscopy. In the interim, patient was referred to general surgery and saw Dr. Linares on 04/15/2022 for consideration of cholecystectomy. Although her note suggest that cholecystectomy was recommended, Mr. Hood relates that he was told directly that there was significant doubt his pain was fully attributable due to a gallbladder problem. Given this uncertainty and the fact that he enjoyed a period of relative freedom from his symptoms he decided to hold off on surgery. He then underwent the planned EGD and colonoscopy 06/30/2022 where he was noted to have some bleeding gastric polyps and a hiatal hernia. Then on 07/27/2022 he underwent HIDA imaging which showed an abnormal ejection fraction for his gallbladder but, again, he was relatively free of discomfort and decided to await his next gastroenterology visit with Dr. Bruce due November 2022. Mr. Hood has no prior surgical history. He relates that his only procedural history includes several colonoscopies which were done at a shortened interval on account of a family history of colon cancer that was diagnosed in his brother and his third decade (20s) of life. [facility] Medical History Abdominal pain CPAP (continuous positive airway pressure) dependence Diabetes Dietary restriction Epigastric pain GERD (gastroesophageal reflux disease) Glaucoma Hypertension Non-smoker Prostate disease Wears contact lenses Wears hearing aid Home Medications eszopiclone 2 mg tablet (Lunesta) 2 mg PO QHS 12/14/21 [History Last Taken Unknown] lorazepam 2 mg tablet 2 mg PO QHS PRN Sleep 12/14/21 [History Last Taken Unknown] metformin 500 mg tablet 500 mg PO DAILY 12/14/21 [History Last Taken Unknown] atorvastatin 20 mg tablet 20 mg PO DAILY 02/25/22 [History Last Taken Unknown] betamethasone dipropionate 0.05 % topical cream 1 applic topical DAILY PRN Skin Cleansing 02/25/22 [History Last Taken Unknown] dutasteride 0.5 mg capsule 0.5 mg PO DAILY 02/25/22 [History Last Taken Unknown] fluoxetine 10 mg capsule 10 mg PO DAILY 02/25/22 [History Last Taken Unknown] telmisartan 40 mg tablet 40 mg PO QHS 02/25/22 [History Last Taken Unknown] omega 2-mxz-bel-fish oil 300 mg-1,000 mg capsule (Fish Oil) 1 cap PO DAILY 04/08/22 [History Last Taken 06/27/22] dorzolamide 2 % eye drops 1 drp EACH EYE BID 06/27/22 [History Last Taken Unknown] latanoprost 0.005 % eye drops 1 drp EACH EYE QPM 06/27/22 [History Last Taken Unknown] timolol maleate 0.25 % eye drops 1 drp EACH EYE BID 06/27/22 [History Last Taken Unknown] pantoprazole 40 mg tablet,delayed release 40 mg PO QHS 06/30/22 [History Last Taken Unknown] dicyclomine 20 mg tablet 20 mg PO TID PRN abdominal pain #60 tabs 07/15/22 [Rx Last Taken Unknown] Allergy/AdvReac Type Severity Reaction Status Date / Time No Known Allergies Allergy Verified 10/30/22 14:14 Family History Father Asthma Mother Diabetes Brother Colon cancer Surgical History Hx of colonoscopy Social History Smoking Status: Never smoker ROS Constitutional Constitutional: Reports weight loss; Denies fever(s) Gastrointestinal Gastrointestinal: Denies nausea or vomiting Genitourinary Genitourinary: Reports other Details: Dark urine Integumentary Integumentary: Reports jaundice Physical Exam Const alert, oriented x3 and no apparent distress Constitutional Narrative: Clearly jaundiced General Appearance: cooperative Nutritional Appearance: overweight Eyes Sclera: sclera abnormal Positive for bilateral (Icterus) Resp normal respiratory effort GI GI Narrative: No scars, nondistended, soft, nontender to palpation. Negative Justice sign. Lab / Micro Data 10/30/22 15:00 10/30/22 15:00 Labs: Laboratory Results - last 24 hr 10/30/22 15:00: WBC 7.2, RBC 4.99, Hgb 16.0, Hct 46.7, MCV 93.6, MCH 32.1 H, MCHC 34.3, RDW Std Deviation 42.4, RDW Coeff of Tejinder 12.3, Plt Count 250, MPV 9.0, Immature Gran % (Auto) 0.300, Neut % (Auto) 65.9, Lymph % (Auto) 23.5, [place] % (Auto) 9.0, Eos % (Auto) 1.2, Baso % (Auto) 0.1, Absolute Neuts (auto) 4.8, Absolute Lymphs (auto) 1.70, Nucleated RBC % 0, Sodium 137, Potassium 3.7, Chloride 102, Carbon Dioxide 29.0, Anion Gap 6, BUN 13, Creatinine 1.03, Estim Creat Clear Calc 77.43, Est GFR (MDRD) Af Amer 93, Est GFR (MDRD) Non-Af 77, BUN/Creatinine Ratio 12.6, Glucose 209 H, Calcium 8.8, Total Bilirubin 5.00 H, Direct Bilirubin 3.94 H, AST 124 H, ALT 289 H, Alkaline Phosphatase 297 H, Total Protein 7.1, Albumin 3.6, Globulin 3.5, Amylase 123 H, Lipase 194 H 10/30/22 15:59: Urine Color Yellow, Urine Clarity Sl. Cloudy, Urine pH 6.0, Ur Specific [place] 1.015, Urine Protein 15 H, Urine Glucose (UA) 100 H, Urine Ketones Negative, Urine Occult Blood Negative, Urine Nitrite Negative, Urine Bilirubin 3 H, Urine Urobilinogen 4 H, Ur Leukocyte Esterase 25 H, Urine RBC 0 SEEN, Urine WBC 0-5 SEEN, Ur Squamous Epith Cells 0-5 SEEN, Amorphous Sediment 1+ URATE, Urine Bacteria 0 SEEN, Urine Mucus 0 SEEN Radiology Impression Abdomen/Pelvis CT 10/30/22 14:51 IMPRESSION: 1. Cholelithiasis and gallbladder wall thickening with minimal pericholecystic edema. Findings may be indicative of acute cholecystitis. Correlate clinically and consider right upper quadrant ultrasound. 2. Prostatomegaly. 3. Left-sided urinary bladder diverticulum. Electronically Signed: Devaughn Estrada DO at 16:52 EDT , Gallbladder Ultrasound 10/30/22 16:40 IMPRESSION: 1. Gallbladder wall thickening, pericholecystic fluid, stones highly suggestive of acute cholecystitis despite a negative sonographic Justice sign. 2. Intrahepatic biliary ductal dilatation is nonspecific. No significant dilation of the common bile duct. Electronically Signed: Devaughn Estrada DO at 18:36 EDT , Charges/Coding Visit Charges Inpatient E&M: 95462 Init Hosp L2
--- NOTE | 2022-10-30 20:12 | PCM.HP.STD ---
HPI - General General Date of Admission: 10/30/22 Date of Service: 10/30/22 Chief Complaint: Acute cholecystitis HPI Narrative NICHOLE HOOD, is a 67 M with history of hypertension, type 2 diabetes, depression, hyperlipidemia and recurrent epigastric pain with known gallbladder sludge and elevated liver enzymes who presented to [facility] ED on 10/30/2022 with recurrent abdominal pain. Patient seen at bedside in the ED, present. Patient sitting comfortably in bed, conversing normally, no acute distress on my interview. He and state that his pain resolved fairly acutely about 1 hour ago. States he has had these gallbladder attacks fairly consistently now for the past several months. However, it seems like this pain was the worst that he has had and the most persistent. Pain was located in the epigastric to right upper quadrant region. He currently denies any fevers or chills. Denies any other acute pain or discomfort. No other acute concerns. Vitals in ED unremarkable. Labs notable for normal CBC and BMP, AST 124, ALT 289, alk phos 297, total bilirubin 5.0, direct bilirubin 3.9, lipase 194, amylase 123. CT abdomen pelvis shows cholelithiasis and gallbladder wall thickening with some pericholecystic edema. Gallbladder ultrasound also shows gallbladder wall thickening and pericholecystic fluid, with stones highly suggestive of acute cholecystitis despite a negative sonographic Justice sign; also shows nonspecific intrahepatic biliary ductal dilation, no significant dilation of common bile duct. [facility] Medical History Abdominal pain CPAP (continuous positive airway pressure) dependence Diabetes Dietary restriction Epigastric pain GERD (gastroesophageal reflux disease) Glaucoma Hypertension Non-smoker Prostate disease Wears contact lenses Wears hearing aid Home Medications eszopiclone 2 mg tablet (Lunesta) 2 mg PO QHS 12/14/21 [History Last Taken Unknown] lorazepam 2 mg tablet 2 mg PO QHS Sleep 12/14/21 [History Last Taken Unknown] metformin 500 mg tablet 500 mg PO BID diabetes 12/14/21 [History Last Taken Unknown] atorvastatin 20 mg tablet 20 mg PO DAILY 02/25/22 [History Last Taken Unknown] betamethasone dipropionate 0.05 % topical cream 1 applic topical DAILY PRN Skin Cleansing 02/25/22 [History Last Taken Unknown] dutasteride 0.5 mg capsule 0.5 mg PO DAILY 02/25/22 [History Last Taken Unknown] fluoxetine 10 mg capsule 10 mg PO DAILY 02/25/22 [History Last Taken Unknown] telmisartan 40 mg tablet 40 mg PO QHS blood pressure 02/25/22 [History Last Taken Unknown] omega 7-aoe-imz-fish oil 300 mg-1,000 mg capsule (Fish Oil) 1 cap PO DAILY supplement 04/08/22 [History Last Taken 06/27/22] dorzolamide 2 % eye drops 1 drp EACH EYE BID 06/27/22 [History Last Taken Unknown] latanoprost 0.005 % eye drops 1 drp EACH EYE QPM 06/27/22 [History Last Taken Unknown] pantoprazole 40 mg tablet,delayed release 40 mg PO QHS GERD 06/30/22 [History Last Taken Unknown] dicyclomine 20 mg tablet 20 mg PO TID PRN abdominal pain #60 tabs 07/15/22 [Rx Last Taken Unknown] fluticasone propionate 50 mcg/actuation nasal spray,suspension 2 spray intranasal Q12H allergies 10/30/22 [History Last Taken Unknown] loratadine 10 mg tablet (Allergy Relief (loratadine)) 10 mg PO DAILY 10/30/22 [History Last Taken Unknown] Allergy/AdvReac Type Severity Reaction Status Date / Time No Known Allergies Allergy Verified 10/30/22 14:14 Family History Father Asthma Mother Diabetes Brother Colon cancer Surgical History Hx of colonoscopy Social History Smoking Status: Never smoker ROS Constitutional Constitutional: Denies change in weight, chills, fatigue or fever(s) Cardiovascular Cardiovascular: Denies chest pain Respiratory/Chest Respiratory/Chest: Denies cough or shortness of breath at rest Gastrointestinal Gastrointestinal: Reports abdominal pain and nausea; Denies constipation, diarrhea or vomiting Musculoskeletal Musculoskeletal: Denies back pain Vital Signs Vital Signs Vital Signs: 10/30/22 14:15 10/30/22 16:12 Temperature 98.7 F Temperature Source Temporal Pulse Rate 94 Respiratory Rate 18 18 Blood Pressure 143/92 H Blood Pressure Mean 109 Pulse Ox 97 Oxygen Delivery Method Room Air Weight Weight: 101.559 kg Body Mass Index (BMI) 30.3 Physical Exam Const alert, oriented x3, no apparent distress, average body habitus, healthy appearing and well nourished Constitutional Narrative: Pleasant male sitting comfortably in bed, conversing normally, no acute distress. General Appearance: cooperative, comfortable, well kempt and well developed HEENT normocephalic, head/scalp atraumatic, hearing grossly normal bilaterally, nasal mucous membranes and turbinates normal and moist oral mucous membranes Eyes PERRL, EOMs intact bilaterally and conjunctivae normal Neck full ROM, no lymphadenopathy and supple Lymph Lymphatic: no lymphadenopathy noted Chest inspection of chest normal Resp normal respiratory effort, normal air movement, no use of accessory muscles and clear to auscultation bilaterally Cardio regular rate, regular rhythm, no murmurs and peripheral pulses 2+ throughout GI normal to inspection, nondistended, normoactive bowel sounds, soft to palpation, non-tender and non-distended Back/Spine normal ROM Extremity normal to inspection, full ROM and no pedal edema Skin no rashes or lesions noted Psych mental status grossly normal Results Lab / Micro Data 10/30/22 15:00 10/30/22 15:00 Labs: Laboratory Results - last 24 hr 10/30/22 15:00: WBC 7.2, RBC 4.99, Hgb 16.0, Hct 46.7, MCV 93.6, MCH 32.1 H, MCHC 34.3, RDW Std Deviation 42.4, RDW Coeff of Tejinder 12.3, Plt Count 250, MPV 9.0, Immature Gran % (Auto) 0.300, Neut % (Auto) 65.9, Lymph % (Auto) 23.5, [place] % (Auto) 9.0, Eos % (Auto) 1.2, Baso % (Auto) 0.1, Absolute Neuts (auto) 4.8, Absolute Lymphs (auto) 1.70, Nucleated RBC % 0, Sodium 137, Potassium 3.7, Chloride 102, Carbon Dioxide 29.0, Anion Gap 6, BUN 13, Creatinine 1.03, Estim Creat Clear Calc 77.43, Est GFR (MDRD) Af Amer 93, Est GFR (MDRD) Non-Af 77, BUN/Creatinine Ratio 12.6, Glucose 209 H, Calcium 8.8, Total Bilirubin 5.00 H, Direct Bilirubin 3.94 H, AST 124 H, ALT 289 H, Alkaline Phosphatase 297 H, Total Protein 7.1, Albumin 3.6, Globulin 3.5, Amylase 123 H, Lipase 194 H 10/30/22 15:59: Urine Color Yellow, Urine Clarity Sl. Cloudy, Urine pH 6.0, Ur Specific [place] 1.015, Urine Protein 15 H, Urine Glucose (UA) 100 H, Urine Ketones Negative, Urine Occult Blood Negative, Urine Nitrite Negative, Urine Bilirubin 3 H, Urine Urobilinogen 4 H, Ur Leukocyte Esterase 25 H, Urine RBC 0 SEEN, Urine WBC 0-5 SEEN, Ur Squamous Epith Cells 0-5 SEEN, Amorphous Sediment 1+ URATE, Urine Bacteria 0 SEEN, Urine Mucus 0 SEEN Radiology Impression Abdomen/Pelvis CT 10/30/22 14:51 IMPRESSION: 1. Cholelithiasis and gallbladder wall thickening with minimal pericholecystic edema. Findings may be indicative of acute cholecystitis. Correlate clinically and consider right upper quadrant ultrasound. 2. Prostatomegaly. 3. Left-sided urinary bladder diverticulum. Electronically Signed: Devaughn Estrada DO at 16:52 EDT , Gallbladder Ultrasound 10/30/22 16:40 IMPRESSION: 1. Gallbladder wall thickening, pericholecystic fluid, stones highly suggestive of acute cholecystitis despite a negative sonographic Justice sign. 2. Intrahepatic biliary ductal dilatation is nonspecific. No significant dilation of the common bile duct. Electronically Signed: Devaughn Estrada DO at 18:36 EDT , Assessment & Plan Assessment/Plan (1) Acute cholecystitis: PLAN: Plan Patient is a 67-year-old male with history of hypertension, type 2 diabetes, depression, hyperlipidemia and recurrent epigastric pain with known gallbladder sludge and elevated liver enzymes who presented to [facility] ED on 10/30/2022 with recurrent abdominal pain. 1. Acute cholecystitis, elevated liver enzymes Has seen Dr. Bruce with gastroenterology and Dr. Linares with general surgery in the outpatient setting recently. HIDA scan in 07/2022 showed a decreased gallbladder ejection fraction. EGD and colonoscopy were done in 06/2022 with polyps found, otherwise fairly unremarkable. On this presentation, CT abdomen pelvis shows cholelithiasis and gallbladder wall thickening with some pericholecystic edema. Gallbladder ultrasound also shows gallbladder wall thickening and pericholecystic fluid, with stones highly suggestive of acute cholecystitis despite a negative sonographic Justice sign; also shows nonspecific intrahepatic biliary ductal dilation, no significant dilation of common bile duct. Abnormal labs of AST 124, ALT 289, alk phos 297, total bilirubin 5.0, direct bilirubin 3.9, lipase 194, amylase 123. ? Admit under inpatient status to PCU. General surgery evaluated in the ED, recommended n.p.o. at midnight, repeat CMP and lipase in the morning, empiric antibiotic coverage; these orders were placed. GI consulted. LR 75 ml/hr for maintenance fluids. Chronic medical conditions: ? Type 2 diabetes: On home metformin 500 mg twice daily. Glucose 209 on admit. Sliding scale insulin while inpatient. ? Hypertension: Continue home telmisartan 40 mg at night. ? Hyperlipidemia: Holding home statin in setting of elevated liver enzymes as noted above. ? Depression: Continue home fluoxetine, lorazepam at night as needed. DVT prophylaxis: Lovenox CODE STATUS: Full code, verified Expected disposition: Home, TBD Total clinical time spent by myself addressing the patient's medical issues, reviewing all the data, and collaborating with patient's care team: 55 minutes. Charges/Coding Visit Charges Inpatient E&M: 96282 Init Hosp L2
[2022-10-30] MEDS: Piperacil/Tazobactam 3.375 GM in 0.9% Normal Saline (50mL MB+) 50 ML IV (20:24)
[2022-10-30 20:42] VITALS: BP 139/94; PULSE 75; RESP 16; TEMP 37.2; O2SAT 97
[2022-10-30 20:53] LABS: Prothrombin Time (Protime)PT. 13.5 SECONDS (11.7-14.9)
[2022-10-30 21:21] VITALS: BP 139/94; PULSE 75; RESP 16; TEMP 37.2; O2SAT 97
[2022-10-30 23:09] VITALS: BP 156/77; PULSE 95; RESP 18; TEMP 36.9; O2SAT 95; BMI 29.6
[2022-10-30 23:48] LABS: Bedside Glucose 198 mg/dL (74-106)
[2022-10-31] VITALS (7 sets, daily range): BP systolic 141–156; BP diastolic 86–92; PULSE 79–83; RESP 16–18; TEMP 36.8–37.1; O2SAT 95–97
[2022-10-31] MEDS: Lactated Ringers 1,000 ML 75 ML IV ×2 (00:04→13:21)
[2022-10-31] MEDS: Insulin Lispro 100 UNIT/ML INSULN.PEN SC (00:18)
[2022-10-31] MEDS: Pantoprazole Sodium 40 MG Tablet PO ×2 (00:31→22:41)
[2022-10-31] MEDS: LORazepam 1 MG Tablet 2 MG PO ×2 (00:31→22:48)
[2022-10-31] MEDS: Piperacil/Tazobactam 3.375 GM in 0.9% Normal Saline (50mL MB+) 50 ML IV ×3 (05:13→22:42)
[2022-10-31] MEDS: Losartan Potassium 50 MG Tablet PO ×2 (05:14→22:41)
[2022-10-31 05:31] LABS: Hematocrit 43.1 % (40-54); Hemoglobin 14.8 g/dL (13.0-16.5); Mean Corp Hgb Conc 34.3 g/dL (32-36); Mean Corpuscular Hgb 32.3 pg (27.0-32.0); Mean Corpuscular Volume 94.1 fL (80-94); Mean Platelet Vol. 8.9 fl (6.2-12.0); Platelet Count 239 K/mm3 (150-450); RBC Distribution Width CV 12.2 % (11.6-14.6); RBC Distribution Width SD 42.1 fl (35.1-43.9); Red Blood Count 4.58 M/mm3 (4.6-6.2); White Blood Count 8.3 K/mm3 (4.4-11.0)
[2022-10-31 06:05] LABS: Lipase 69 U/L (13-75)
[2022-10-31 06:08] LABS: AST(SGOT) 62 U/L (15-37); Alanine Aminotransfer ALT/SGPT 203 U/L (16-61); Albumin, Serum 3.2 g/dL (3.2-5.0); Alkaline Phosphatase 253 U/L (45-117); Anion Gap 6 (5-15); BUN 15 mg/dL (7-18); BUN/Creat Ratio 17.6 RATIO (10-20); Bilirubin, Direct 0.89 mg/dL (0.00-0.30); Calcium,Total 8.6 mg/dL (8.5-10.1); Chloride 106 mmol/L (98-107); Creatinine, Serum 0.85 mg/dL (0.70-1.30); EST Glomerular Filtration Rate 96 mL/min (>60); Est Glom Filt Rate - Afr Amer 116 mL/min (>60); Estimated Creatinine Clearance 93.83 ml/min; Globulin 3.4 g/dL (2.2-4.2); Glucose 131 mg/dL (74-106); Potassium 3.6 mmol/L (3.5-5.1); Protein, Total 6.6 g/dL (6.4-8.2); Sodium Level 138 mmol/L (136-145)
[2022-10-31 06:35] LABS: Bedside Glucose 144 mg/dL (74-106)
--- NOTE | 2022-10-31 06:52 | MRI_ITS ---
INDICATION: jaundice, abdomen pain EXAMINATION: MRI - MR MRCP W/O Contrast TECHNIQUE: Multiplanar and multisequence MR images of the abdomen were obtained with MRCP sequence. Three-dimensional post-processing reconstructions were performed. IV Contrast Dosage and Agent: None. COMPARISON: CT abdomen and pelvis 10/30/2022 FINDINGS: LIVER: No mass. Normal morphology. GALLBLADDER AND BILIARY TREE: Multiple gallstones. Mild pericholecystic fluid. The CBD measures 5 mm. No intra- or extrahepatic biliary dilation. 4 mm filling defect in the distal common bile duct. PANCREAS: No mass. No pancreatic duct dilation. SPLEEN: Non-enlarged. ADRENAL GLANDS: No nodules. KIDNEYS: Stable prominent left extrarenal pelvis. No hydronephrosis. No mass. LYMPH NODES: No enlarged periportal or retroperitoneal lymph nodes. PERITONEUM: No ascites or fluid collection. VESSELS: Aorta is non-dilated. LOWER CHEST: No pleural effusion. MRI/MRCP Abdomen without Contrast IMPRESSION: Cholelithiasis and choledocholithiasis without abnormal dilatation of the biliary system. Electronically Signed: Sergey Bruno MD at 17:29 EDT ,
--- NOTE | 2022-10-31 08:36 | PCM.PN.SRG ---
Subjective Subjective Patient seen and evaluated during AM rounds. Once again he denies any abdominal discomfort. He states that he is having less itching this morning. Objective Data Objective Data Vital Signs: Vital Signs Temp Pulse Resp BP Pulse Ox O2 Del Method 98.2 F 79 16 141/86 H 97 CPAP 10/31/22 04:00 10/31/22 04:00 10/31/22 04:00 10/31/22 04:00 10/31/22 04:00 10/31/22 04:00 Oxygen Delivery Method CPAP Weight: 218 lb 11.177 oz Body Mass Index (BMI) 29.6 Intake & Output: Intake and Output for Last 24 Hours 10/29/22 10/30/22 10/31/22 23:59 23:59 23:59 Intake Total 50 / 200 300 / 300 Balance 50 / 200 300 / 300 Lab / Micro Data 10/31/22 05:00 10/31/22 05:00 Labs: Laboratory Results - last 24 hr 10/30/22 15:00: WBC 7.2, RBC 4.99, Hgb 16.0, Hct 46.7, MCV 93.6, MCH 32.1 H, MCHC 34.3, RDW Std Deviation 42.4, RDW Coeff of Tejinder 12.3, Plt Count 250, MPV 9.0, Immature Gran % (Auto) 0.300, Neut % (Auto) 65.9, Lymph % (Auto) 23.5, [place] % (Auto) 9.0, Eos % (Auto) 1.2, Baso % (Auto) 0.1, Absolute Neuts (auto) 4.8, Absolute Lymphs (auto) 1.70, Nucleated RBC % 0, Sodium 137, Potassium 3.7, Chloride 102, Carbon Dioxide 29.0, Anion Gap 6, BUN 13, Creatinine 1.03, Estim Creat Clear Calc 77.43, Est GFR (MDRD) Af Amer 93, Est GFR (MDRD) Non-Af 77, BUN/Creatinine Ratio 12.6, Glucose 209 H, Calcium 8.8, Total Bilirubin 5.00 H, Direct Bilirubin 3.94 H, AST 124 H, ALT 289 H, Alkaline Phosphatase 297 H, Total Protein 7.1, Albumin 3.6, Globulin 3.5, Amylase 123 H, Lipase 194 H 10/30/22 15:59: Urine Color Yellow, Urine Clarity Sl. Cloudy, Urine pH 6.0, Ur Specific [place] 1.015, Urine Protein 15 H, Urine Glucose (UA) 100 H, Urine Ketones Negative, Urine Occult Blood Negative, Urine Nitrite Negative, Urine Bilirubin 3 H, Urine Urobilinogen 4 H, Ur Leukocyte Esterase 25 H, Urine RBC 0 SEEN, Urine WBC 0-5 SEEN, Ur Squamous Epith Cells 0-5 SEEN, Amorphous Sediment 1+ URATE, Urine Bacteria 0 SEEN, Urine Mucus 0 SEEN 10/30/22 20:40: PT 13.5, INR 1.0 10/30/22 23:27: POC Glucose 198 H 10/31/22 05:00: WBC 8.3, RBC 4.58 L, Hgb 14.8, Hct 43.1, MCV 94.1 H, MCH 32.3 H, MCHC 34.3, RDW Std Deviation 42.1, RDW Coeff of Tejinder 12.2, Plt Count 239, MPV 8.9, Sodium 138, Potassium 3.6, Chloride 106, Carbon Dioxide 26.0, Anion Gap 6, BUN 15, Creatinine 0.85, Estim Creat Clear Calc 93.83, Est GFR (MDRD) Af Amer 116, Est GFR (MDRD) Non-Af 96, BUN/Creatinine Ratio 17.6, Glucose 131 H, Calcium 8.6, Total Bilirubin 1.80 H, Direct Bilirubin 0.89 H, AST 62 H, ALT 203 H, Alkaline Phosphatase 253 H, Total Protein 6.6, Albumin 3.2, Globulin 3.4, Lipase 69 10/31/22 06:07: POC Glucose 144 H Radiography Diagnostic Testing: Radiology Impression Abdomen/Pelvis CT 10/30/22 14:51 IMPRESSION: 1. Cholelithiasis and gallbladder wall thickening with minimal pericholecystic edema. Findings may be indicative of acute cholecystitis. Correlate clinically and consider right upper quadrant ultrasound. 2. Prostatomegaly. 3. Left-sided urinary bladder diverticulum. Electronically Signed: Devaughn Estrada DO at 16:52 EDT , Gallbladder Ultrasound 10/30/22 16:40 IMPRESSION: 1. Gallbladder wall thickening, pericholecystic fluid, stones highly suggestive of acute cholecystitis despite a negative sonographic Justice sign. 2. Intrahepatic biliary ductal dilatation is nonspecific. No significant dilation of the common bile duct. Electronically Signed: Devaughn VArgelia EstradaDO at 18:36 EDT , Physical Exam Narrative Improved jaundice and scleral icterus Const oriented x3 and no apparent distress Constitutional Narrative: Improved jaundice and scleral icterus Resp normal respiratory effort GI GI Narrative: Nondistended, soft, minimally tender in the right upper quadrant with deep palpation but negative Justice sign Assessment & Plan Assessment/Plan (1) Cholelithiasis: (2) Jaundice: (3) Elevated liver enzymes: PLAN: Plan Patient is a 67-year-old male who presents due to observations of dark urine and new jaundice with a clinical picture concerning for possible choledocholithiasis with cholecystitis, however, patient's exam and remainder clinical picture did not completely match this diagnosis. Fortunately Mr. Meneses has experienced a significant decrease in his liver function testing and bilirubin with this morning's labs in reference to yesterday's emergency department labs. This has come alongside an improvement in his jaundice and symptoms of itching. The spontaneous improvement is suggestive of a transiently obstructive stone that is now passed, but patient remains remarkably nontender for diagnosis of cholelithiasis with cholecystitis. Therefore, I am interested in additional gastroenterology evaluation. Will await the results of this evaluation before further plans of intervention are made. Charges/Coding Visit Charges Inpatient E&M: 19593 Subs Hosp L2
[2022-10-31] MEDS: FLUoxetine 10 MG Capsule PO (09:09)
[2022-10-31] MEDS: 0.9% Saline Lock 10 ML Syringe IV (09:09)
[2022-10-31] MEDS: Enoxaparin 40 MG/0.4 ML Syringe SC (09:09)
--- NOTE | 2022-10-31 09:43 | PCM.PN.HOSP ---
Reason for Visit Reason for Visit: Diagnoses Calculus of gallbladder without cholecystitis without obstruction (10/30/22) Acute cholecystitis (10/30/22) Unspecified jaundice (10/30/22) Abnormal levels of other serum enzymes (10/30/22) Subjective Subjective Feels well. No abdominal pain. Objective Data Objective Data Vital Signs: Vital Signs Temp Pulse Resp BP Pulse Ox O2 Del Method 36.8 C 79 16 141/86 H 97 CPAP 10/31/22 04:00 10/31/22 04:00 10/31/22 04:00 10/31/22 04:00 10/31/22 04:00 10/31/22 04:00 Oxygen Delivery Method CPAP Weight: 99.2 kg Body Mass Index (BMI) 29.6 Intake & Output: Intake and Output for Last 24 Hours 10/29/22 10/30/22 10/31/22 23:59 23:59 23:59 Intake Total 50 / 200 300 / 300 Balance 50 / 200 300 / 300 Lab / Micro Data 10/31/22 05:00 10/31/22 05:00 Labs: Laboratory Results - last 24 hr 10/30/22 15:00: WBC 7.2, RBC 4.99, Hgb 16.0, Hct 46.7, MCV 93.6, MCH 32.1 H, MCHC 34.3, RDW Std Deviation 42.4, RDW Coeff of Tejinder 12.3, Plt Count 250, MPV 9.0, Immature Gran % (Auto) 0.300, Neut % (Auto) 65.9, Lymph % (Auto) 23.5, [place] % (Auto) 9.0, Eos % (Auto) 1.2, Baso % (Auto) 0.1, Absolute Neuts (auto) 4.8, Absolute Lymphs (auto) 1.70, Nucleated RBC % 0, Sodium 137, Potassium 3.7, Chloride 102, Carbon Dioxide 29.0, Anion Gap 6, BUN 13, Creatinine 1.03, Estim Creat Clear Calc 77.43, Est GFR (MDRD) Af Amer 93, Est GFR (MDRD) Non-Af 77, BUN/Creatinine Ratio 12.6, Glucose 209 H, Calcium 8.8, Total Bilirubin 5.00 H, Direct Bilirubin 3.94 H, AST 124 H, ALT 289 H, Alkaline Phosphatase 297 H, Total Protein 7.1, Albumin 3.6, Globulin 3.5, Amylase 123 H, Lipase 194 H 10/30/22 15:59: Urine Color Yellow, Urine Clarity Sl. Cloudy, Urine pH 6.0, Ur Specific [place] 1.015, Urine Protein 15 H, Urine Glucose (UA) 100 H, Urine Ketones Negative, Urine Occult Blood Negative, Urine Nitrite Negative, Urine Bilirubin 3 H, Urine Urobilinogen 4 H, Ur Leukocyte Esterase 25 H, Urine RBC 0 SEEN, Urine WBC 0-5 SEEN, Ur Squamous Epith Cells 0-5 SEEN, Amorphous Sediment 1+ URATE, Urine Bacteria 0 SEEN, Urine Mucus 0 SEEN 10/30/22 20:40: PT 13.5, INR 1.0 10/30/22 23:27: POC Glucose 198 H 10/31/22 05:00: WBC 8.3, RBC 4.58 L, Hgb 14.8, Hct 43.1, MCV 94.1 H, MCH 32.3 H, MCHC 34.3, RDW Std Deviation 42.1, RDW Coeff of Tejinder 12.2, Plt Count 239, MPV 8.9, Sodium 138, Potassium 3.6, Chloride 106, Carbon Dioxide 26.0, Anion Gap 6, BUN 15, Creatinine 0.85, Estim Creat Clear Calc 93.83, Est GFR (MDRD) Af Amer 116, Est GFR (MDRD) Non-Af 96, BUN/Creatinine Ratio 17.6, Glucose 131 H, Calcium 8.6, Total Bilirubin 1.80 H, Direct Bilirubin 0.89 H, AST 62 H, ALT 203 H, Alkaline Phosphatase 253 H, Total Protein 6.6, Albumin 3.2, Globulin 3.4, Lipase 69 10/31/22 06:07: POC Glucose 144 H Radiography Diagnostic Testing: Radiology Impression Abdomen/Pelvis CT 10/30/22 14:51 IMPRESSION: 1. Cholelithiasis and gallbladder wall thickening with minimal pericholecystic edema. Findings may be indicative of acute cholecystitis. Correlate clinically and consider right upper quadrant ultrasound. 2. Prostatomegaly. 3. Left-sided urinary bladder diverticulum. Electronically Signed: Devaughn Estrada DO at 16:52 EDT , Gallbladder Ultrasound 10/30/22 16:40 IMPRESSION: 1. Gallbladder wall thickening, pericholecystic fluid, stones highly suggestive of acute cholecystitis despite a negative sonographic Justice sign. 2. Intrahepatic biliary ductal dilatation is nonspecific. No significant dilation of the common bile duct. Electronically Signed: Devaughn Estrada, at 18:36 EDT , Physical Exam Const alert and no apparent distress HEENT head/scalp atraumatic and moist oral mucous membranes Cardio regular rate, regular rhythm, S1 normal heart sound and S2 normal heart sound GI normal to inspection, nondistended, normoactive bowel sounds, soft to palpation, non-tender and non-distended Extremity normal to inspection Assessment & Plan Assessment/Plan (1) Acute cholecystitis: PLAN: CT shows: cholelithiasis and GB wall thickening w minimal pericholecystic edema. US: GB wall thickening, perichoecystic fluid, stones highly suggestive of acute cholecystis Seen by GS and requests GI eval abx w pip/tazo PLAN: Plan Chronic medical conditions: ? Type 2 diabetes: On home metformin 500 mg twice daily. Glucose 209 on admit. Sliding scale insulin while inpatient. ? Hypertension: Continue home telmisartan 40 mg at night. ? Hyperlipidemia: Holding home statin in setting of elevated liver enzymes as noted above. ? Depression: Continue home fluoxetine, lorazepam at night as needed. DVT prophylaxis: Lovenox CODE STATUS: Full code, verified Expected disposition: Home, TBD Charges/Coding Visit Charges Inpatient E&M: 06730 Subs Hosp L2
[2022-10-31] MEDS: Fluticasone 0.05% 1 SPRAY NASAL.SRY 2 SPRAY NASAL ×2 (11:24→22:41)
[2022-10-31] MEDS: Loratadine 10 MG Tablet PO (11:25)
[2022-10-31 11:58] LABS: Bedside Glucose 119 mg/dL (74-106)
--- NOTE | 2022-10-31 13:28 | CON.PCM.GI_ITS ---
HPI Consult Data Date of Consult: 10/31/22 Attending Care Provider: cholestatic jaundice HPI Narrative Reason for Consultation: cholestatic jaundice HPI Narrative: NICHOLE HOOD, is a 67 M who presents with itching and jaundice. He has a history of hypertension, type 2 diabetes, depression, hyperlipidemia and recurrent epigastric pain with known gallbladder sludge and elevated liver enzy mes who presented to [facility] ED on 10/30/2022 with recurrent abdominal pain. Patient seen at bedside in the ED, present. Patient sitting comfortably in bed, conversing normally, no acute distress on my interview. He and state that his pain resolved fairly acutely about 1 hour ago. States he has had these gallbladder attacks fairly consistently now for the past several months. However, it seems like this pain was the worst that he has had and the most persistent. Pain was located in the epigastric to right upper quadrant region. He currently denies any fevers or chills. Denies any other acute pain or discomfort. No other acute concerns. Vitals in ED unremarkable. Labs notable for normal CBC and BMP, AST 124, ALT 289, alk phos 297, total bilirubin 5.0, direct bilirubin 3.9, lipase 194, amylase 123. CT abdomen pelvis shows cholelithiasis and gallbladder wall thickening with some pericholecystic edema. Gallbladder ultrasound also shows gallbladder wall thickening and pericholecystic fluid, with stones highly suggestive of acute cholecystitis despite a negative sonographic Justice sign; also shows nonspecific intrahepatic biliary ductal dilation, no significant dilation of common bile duct. [facility] Medical History Abdominal pain CPAP (continuous positive airway pressure) dependence Diabetes Dietary restriction Epigastric pain GERD (gastroesophageal reflux disease) Glaucoma Hypertension Non-smoker Prostate disease Wears contact lenses Wears hearing aid Home Medications eszopiclone 2 mg tablet (Lunesta) 2 mg PO QHS 12/14/21 [History Last Taken Unknown] lorazepam 2 mg tablet 2 mg PO QHS Sleep 12/14/21 [History Last Taken Unknown] metformin 500 mg tablet 500 mg PO BID diabetes 12/14/21 [History Last Taken Unknown] atorvastatin 20 mg tablet 20 mg PO DAILY 02/25/22 [History Last Taken Unknown] betamethasone dipropionate 0.05 % topical cream 1 applic topical DAILY PRN Skin Cleansing 02/25/22 [History Last Taken Unknown] dutasteride 0.5 mg capsule 0.5 mg PO DAILY 02/25/22 [History Last Taken Unknown] fluoxetine 10 mg capsule 10 mg PO DAILY 02/25/22 [History Last Taken Unknown] telmisartan 40 mg tablet 40 mg PO QHS blood pressure 02/25/22 [History Last Taken Unknown] omega 1-xzu-ekg-fish oil 300 mg-1,000 mg capsule (Fish Oil) 1 cap PO DAILY supplement 04/08/22 [History Last Taken 06/27/22] dorzolamide 2 % eye drops 1 drp EACH EYE BID 06/27/22 [History Last Taken Unknow n] latanoprost 0.005 % eye drops 1 drp EACH EYE QPM 06/27/22 [History Last Taken Unknown] pantoprazole 40 mg tablet,delayed release 40 mg PO QHS GERD 06/30/22 [History Last Taken Unknown] dicyclomine 20 mg tablet 20 mg PO TID PRN abdominal pain #60 tabs 07/15/22 [Rx Last Taken Unknown] fluticasone propionate 50 mcg/actuation nasal spray,suspension 2 spray intranasal Q12H allergies 10/30/22 [History Last Taken Unknown] loratadine 10 mg tablet (Allergy Relief (loratadine)) 10 mg PO DAILY 10/30/22 [History Last Taken Unknown] Allergy/AdvReac Type Severity Reaction Status Date / Time No Known Allergies Allergy Verified 10/30/22 14:14 Family History Father Asthma Mother Diabetes Brother Colon cancer Surgical History Hx of colonoscopy Social History Smoking Status: Never smoker ROS Constitutional Constitutional: Denies change in weight, chills, fatigue or fever(s) Cardiovascular Cardiovascular: Denies chest pain Respiratory/Chest Respiratory/Chest: Denies cough or shortness of breath at rest Gastrointestinal Gastrointestinal: Reports abdominal pain and nausea; Denies constipation, diarrhea or vomiting Musculoskeletal Musculoskeletal: Denies back pain Physical Exam Const alert, oriented x3, no apparent distress, average body habitus, healthy ap pearing and well nourished Constitutional Narrative: Pleasant male sitting comfortably in bed, conversing normally, no acute distress. General Appearance: cooperative, comfortable, well kempt and well developed HEENT normocephalic, head/scalp atraumatic, hearing grossly normal bilaterally, nasal mucous membranes and turbinates normal and moist oral mucous membranes Eyes PERRL, EOMs intact bilaterally and conjunctivae normal Neck full ROM, no lymphadenopathy and supple Lymph Lymphatic: no lymphadenopathy noted Chest inspection of chest normal Resp normal respiratory effort, normal air movement, no use of accessory muscles and clear to auscultation bilaterally Cardio regular rate, regular rhythm, no murmurs and peripheral pulses 2+ throughout GI normal to inspection, nondistended, normoactive bowel sounds, soft to palpation, non-tender and non-distended Back/Spine normal ROM Extremity normal to inspection, full ROM and no pedal edema Skin no rashes or lesions noted Psych mental status grossly normal Lab / Micro Data 10/31/22 05:00 10/31/22 05:00 Labs: Laboratory Results - last 24 hr 10/30/22 15:00: WBC 7.2, RBC 4.99, Hgb 16.0, Hct 46.7, MCV 93.6, MCH 32.1 H, MCHC 34.3, RDW Std Deviation 42.4, RDW Coeff of Tejinder 12.3, Plt Count 250, MPV 9.0, Immature Gran % (Auto) 0.300, Neut % (Auto) 65.9, Lymph % (Auto) 23.5, [place] % (Auto) 9.0, Eos % (Auto) 1.2, Baso % (Auto) 0.1, Absolute Neuts (auto) 4.8, Absolute Lymphs (auto) 1.70, Nucleated RBC % 0, Sodium 137, Potassium 3.7, Chloride 102, Carbon Dioxide 29.0, Anion Gap 6, BUN 13, Creatinine 1.03, Estim Creat Clear Calc 77.43, Est GFR (MDRD) Af Amer 93, Est GFR (MDRD) Non-Af 77, BU N/Creatinine Ratio 12.6, Glucose 209 H, Calcium 8.8, Total Bilirubin 5.00 H, Direct Bilirubin 3.94 H, AST 124 H, ALT 289 H, Alkaline Phosphatase 297 H, Total Protein 7.1, Albumin 3.6, Globulin 3.5, Amylase 123 H, Lipase 194 H 10/30/22 15:59: Urine Color Yellow, Urine Clarity Sl. Cloudy, Urine pH 6.0, Ur Specific [place] 1.015, Urine Protein 15 H, Urine Glucose (UA) 100 H, Urine Ketones Negative, Urine Occult Blood Negative, Urine Nitrite Negative, Urine Bilirubin 3 H, Urine Urobilinogen 4 H, Ur Leukocyte Esterase 25 H, Urine RBC 0 SEEN, Urine WBC 0-5 SEEN, Ur Squamous Epith Cells 0-5 SEEN, Amorphous Sediment 1+ URATE, Urine Bacteria 0 SEEN, Urine Mucus 0 SEEN 10/30/22 20:40: PT 13.5, INR 1.0 10/30/22 23:27: POC Glucose 198 H 10/31/22 05:00: WBC 8.3, RBC 4.58 L, Hgb 14.8, Hct 43.1, MCV 94.1 H, MCH 32.3 H, MCHC 34.3, RDW Std Deviation 42.1, RDW Coeff of Tejinder 12.2, Plt Count 239, MPV 8.9, Sodium 138, Potassium 3.6, Chloride 106, Carbon Dioxide 26.0, Anion Gap 6, BUN 15, Creatinine 0.85, Estim Creat Clear Calc 93.83, Est GFR (MDRD) Af Amer 116, Est GFR (MDRD) Non-Af 96, BUN/Creatinine Ratio 17.6, Glucose 131 H, Calcium 8.6, Total Bilirubin 1.80 H, Direct Bilirubin 0.89 H, AST 62 H, ALT 203 H, Alkaline Phosphatase 253 H, Total Protein 6.6, Albumin 3.2, Globulin 3.4, Lipase 69 10/31/22 06:07: POC Glucose 144 H 10/31/22 11:28: POC Glucose 119 H Radiology Impression Abdomen/Pelvis CT 10/30/22 14:51 IMPRESSION: 1. Cholelithiasis and gallbladder wall thickening with minimal pericholecystic edema. Findings may be indicative of acute cholecystitis. Correlate clinically and consider right upper quadrant ultrasound. 2. Prostatomegaly. 3. Left-sided urinary bladder diverticulum. Electronically Signed: Devaughn Estrada DO at 16:52 EDT , Gallbladder Ultrasound 10/30/22 16:40 IMPRESSION: 1. Gallbladder wall thickening, pericholecystic fluid, stones highly suggestive of acute cholecystitis despite a negative sonographic Justice sign. 2. Intrahepatic biliary ductal dilatation is nonspecific. No significant dilation of the common bile duct. Electronically Signed: Devaughn Estrada, at 18:36 EDT , Assessment & Plan Assessment/Plan (1) Acute cholecystitis: PLAN: Plan Patient is a 67-year-old male with history of hypertension, type 2 diabetes, depression, hyperlipidemia and recurrent epigastric pain with known gallbladder sludge and elevated liver enzymes who presented to [facility] ED on 10/30/2022 with recurrent abdominal pain. Acute cholecystitis, elevated liver enzymes The differential diagnosis for his cholestatic jaundice with elevated amylase and lipase is choledocholithiasis, less likely medication induced injury, ascending cholangitis, Mirizzi syndrome. His LFTs are improving. I would recommend MRCP to evaluate his hepatobiliary system. Continue IV fluids and recheck amylase, lipase. Check ESR, CRP. Check acute hepatitis profile. CT abdomen pelvis shows cholelithiasis and gallbladder wall thickening with some pericholecystic edema. Gallbladder ultrasound also shows gallbladder wall thickening and pericholecystic fluid, with stones highly suggestive of acute cholecystitis despite a negative sonographic Justice sign; also shows nonspecific intrahepatic biliary ductal dilation, no significant dilation of common bile duct. Abnormal labs of AST 124, ALT 289, alk phos 297, total bilirubin 5.0, direct bilirubin 3.9, lipase 194, amylase 123. ? Admit under inpatient status to PCU. Charges/Coding Visit Charges Inpatient E&M: 94823 Init Hosp L3
--- NOTE | 2022-10-31 14:45 | CASEMGMT ---
RN CM Face to Face with patient for initial transition planning/care coordination assessment. RN CM introduced self and role at [facility]. Patient lying in bed, alert and oriented, at bedside. Patient willing to participate in assessment and is able to answer all questions appropriately. Care providers, pharmacy, and demographics verified. Patient wishes to discharge home, denies need for home health at this time. Patient states he has no further needs or concerns at this time. CM to follow for discharge planning needs that may arise. PCP: Debbie Specialists: [facility] urologist Preferred Pharmacy: [facility] at discharge. Insurance: [employer] Prescription Benefit: yes Living Will/HPOA: none LNOK: , daughter Living Arrangements: Patient lives with in a single story home with 2 steps and railing to enter the home. Patient states he is independent at home. Transportation: self, DME/HHC: Patient has cpap at home. No previous HHC or SNF. Disposition Plan: Patient to discharge home with family support and follow-up plans in place. Miranda TOLBERT, RN, CM
[2022-10-31 16:58] LABS: Bedside Glucose 99 mg/dL (74-106)
[2022-10-31 21:35] LABS: Bedside Glucose 169 mg/dL (74-106)
[2022-11-01] VITALS (13 sets, daily range): BP systolic 140–160; BP diastolic 73–90; PULSE 69–93; RESP 14–18; TEMP 36.6–37.1; O2SAT 91–99; BMI 29.6
[2022-11-01] MEDS: Lactated Ringers 1,000 ML 75 ML IV (03:28)
[2022-11-01] MEDS: Piperacil/Tazobactam 3.375 GM in 0.9% Normal Saline (50mL MB+) 50 ML IV ×2 (05:40→18:52)
[2022-11-01 06:47] LABS: Absolute Lymphocyte Count 1.53 X10^3/uL (0.83-4.51); Absolute Neutrophil Count 3.7 X10^3/uL (2.0-7.7); Basophil# 0.01 X10^3/uL; Basophil% 0.2 % (0-1); Eosinophil# 0.16 X10^3/uL; Eosinophils% 2.7 % (0-5); Hematocrit 41.8 % (40-54); Hemoglobin 14.9 g/dL (13.0-16.5); Lymphocyte # 1.53 X10^3/ul (0.83-4.51); Lymphocyte % 25.4 % (19-41); Mean Corp Hgb Conc 35.6 g/dL (32-36); Mean Corpuscular Hgb 33.4 pg (27.0-32.0); Mean Corpuscular Volume 93.7 fL (80-94); Monocyte# 0.65 X10^3/uL; Monocyte% 10.8 % (0-10); NRBC Flagged by Analyzer 0 % (0-5); Neutrophil # 3.67 X10^3/uL (2.7-7.7); Neutrophil % 60.7 % (47-70); Platelet Count 231 K/mm3 (150-450); RBC Distribution Width CV 12.1 % (11.6-14.6); Red Blood Count 4.46 M/mm3 (4.6-6.2)
[2022-11-01 06:56] LABS: Bedside Glucose 132 mg/dL (74-106)
[2022-11-01 07:20] LABS: AST(SGOT) 40 U/L (15-37); Alanine Aminotransfer ALT/SGPT 141 U/L (16-61); Albumin, Serum 3.1 g/dL (3.2-5.0); Alkaline Phosphatase 199 U/L (45-117); Anion Gap 5 (5-15); BUN 14 mg/dL (7-18); Bilirubin, Direct 0.71 mg/dL (0.00-0.30); Calcium,Total 8.5 mg/dL (8.5-10.1); Chloride 107 mmol/L (98-107); Creatinine, Serum 0.82 mg/dL (0.70-1.30); EST Glomerular Filtration Rate 99 mL/min (>60); Est Glom Filt Rate - Afr Amer 120 mL/min (>60); Estimated Creatinine Clearance 97.26 ml/min; Globulin 3.4 g/dL (2.2-4.2); Glucose 122 mg/dL (74-106); Potassium 3.9 mmol/L (3.5-5.1); Protein, Total 6.5 g/dL (6.4-8.2); Sodium Level 138 mmol/L (136-145)
--- NOTE | 2022-11-01 08:32 | PN.SURG_ITS ---
Subjective Subjective Patient seen and examined during AM rounds. He is found resting in bed. He denies any specific complaints. He does report that his itching is better today. Objective Data Objective Data Vital Signs: Vital Signs Temp Pulse Resp BP Pulse Ox O2 Del Method 98.5 F 80 18 145/79 H 96 Room Air 11/01/22 04:00 11/01/22 04:00 11/01/22 04:00 11/01/22 04:00 11/01/22 04:00 11/01/22 08:15 Oxygen Delivery Method Room Air Weight: 218 lb 11.177 oz Body Mass Index (BMI) 29.6 Intake & Output: Intake and Output for Last 24 Hours 10/30/22 10/31/22 11/01/22 23:59 23:59 23:59 Intake Total 50 / 200 1396.25 / 1696.25 1350 / 1350 Balance 50 / 200 1396.25 / 1696.25 1350 / 1350 Lab / Micro Data 11/01/22 06:04 11/01/22 06:04 Labs: Laboratory Results - last 24 hr 10/31/22 11:28: POC Glucose 119 H 10/31/22 16:25: POC Glucose 99 10/31/22 21:16: POC Glucose 169 H 11/01/22 06:04: WBC 6.0, RBC 4.46 L, Hgb 14.9, Hct 41.8, MCV 93.7, MCH 33.4 H, MCHC 35.6, RDW Std Deviation 42.0, RDW Coeff of Tejinder 12.1, Plt Count 231, MPV 9.0, Immature Gran % (Auto) 0.200, Neut % (Auto) 60.7, Lymph % (Auto) 25.4, [place] % (Auto) 10.8 H, Eos % (Auto) 2.7, Baso % (Auto) 0.2, Absolute Neuts (auto) 3.7, Absolute Lymphs (auto) 1.53, Nucleated RBC % 0, Sodium 138, Potassium 3.9, Chloride 107, Carbon Dioxide 26.0, Anion Gap 5, BUN 14, Creatinine 0.82, Estim Creat Clear Calc 97.26, Est GFR (MDRD) Af Amer 120, Est GFR (MDRD) Non-Af 99, BUN/Creatinine Ratio 17.0, Glucose 122 H, Calcium 8.5, Total Bilirubin 1.60 H, Direct Bilirubin 0.71 H, AST 40 H, ALT 141 H, Alkaline Phosphatase 199 H, Total Protein 6.5, Albumin 3.1 L, Globulin 3.4 11/01/22 06:38: POC Glucose 132 H Radiography Diagnostic Testing: Radiology Impression MRCP 10/31/22 06:52 IMPRESSION: Cholelithiasis and choledocholithiasis without abnormal dilatation of the biliary system. Electronically Signed: Sergey Bruno MD at 17:29 EDT , Physical Exam Narrative Further improved jaundice Const oriented x3 and no apparent distress Resp normal respiratory effort GI GI Narrative: Minimal right upper quadrant tenderness with palpation. Negative Justice sign. Assessment & Plan Assessment/Plan (1) Cholelithiasis: (2) Jaundice: (3) Elevated liver enzymes: PLAN: Plan Patient is a 67-year-old male who presents due to observations of dark urine and new jaundice with a clinical picture concerning for possible choledocholithiasis with cholecystitis, however, patient's exam and remainder clinical picture did not completely match this diagnosis. Patient remains minimally symptomatic and has had further spontaneous downtrend of his LFTs. Gastroenterology evaluated patient yesterday and recommended MRCP. This was completed and is returned consistent with cholelithiasis and choledocholithiasis?showing evidence of a 4 mm stone within the distal common bile duct. Given the small size, there is a chance for passage during intraoperative cholangiography so I will plan to proceed with our scheduled cholecystectomy and intraoperative cholangiogram today at 1500. Procedure and post procedure expectations were reviewed with patient. I informed him that if his cholangiogram is able to be cleared and he is able to return to the floor with good pain control and tolerance of a diet he may be eligible for discharge later today, however, more than likely he will be ready for tomorrow. ? Maintain n.p.o. ? Maintain IV antibiotics ? Obtain signed consent ? Plan for cholecystectomy with intraoperative cholangiogram at 1500 today Charges/Coding Visit Charges Inpatient E&M: 85047 Subs Hosp L2
--- NOTE | 2022-11-01 08:39 | PN.HOSP_ITS ---
Reason for Visit Reason for Visit: Diagnoses Calculus of gallbladder without cholecystitis without obstruction (10/30/22) Acute cholecystitis (10/30/22) Unspecified jaundice (10/30/22) Abnormal levels of other serum enzymes (10/30/22) Subjective Subjective No abdominal pain. Feels well. Objective Data Objective Data Vital Signs: Vital Signs Temp Pulse Resp BP Pulse Ox O2 Del Method 36.9 C 80 18 145/79 H 96 Room Air 11/01/22 04:00 11/01/22 04:00 11/01/22 04:00 11/01/22 04:00 11/01/22 04:00 11/01/22 08:15 Oxygen Delivery Method Room Air Weight: 99.2 kg Body Mass Index (BMI) 29.6 Intake & Output: Intake and Output for Last 24 Hours 10/30/22 10/31/22 11/01/22 23:59 23:59 23:59 Intake Total 50 / 200 1396.25 / 1696.25 1350 / 1350 Balance 50 / 200 1396.25 / 1696.25 1350 / 1350 Lab / Micro Data 11/01/22 06:04 11/01/22 06:04 Labs: Laboratory Results - last 24 hr 10/31/22 11:28: POC Glucose 119 H 10/31/22 16:25: POC Glucose 99 10/31/22 21:16: POC Glucose 169 H 11/01/22 06:04: WBC 6.0, RBC 4.46 L, Hgb 14.9, Hct 41.8, MCV 93.7, MCH 33.4 H, MCHC 35.6, RDW Std Deviation 42.0, RDW Coeff of Tejinder 12.1, Plt Count 231, MPV 9.0, Immature Gran % (Auto) 0.200, Neut % (Auto) 60.7, Lymph % (Auto) 25.4, [place] % (Auto) 10.8 H, Eos % (Auto) 2.7, Baso % (Auto) 0.2, Absolute Neuts (auto) 3.7, Absolute Lymphs (auto) 1.53, Nucleated RBC % 0, Sodium 138, Potassium 3.9, Chloride 107, Carbon Dioxide 26.0, Anion Gap 5, BUN 14, Creatinine 0.82, Estim Creat Clear Calc 97.26, Est GFR (MDRD) Af Amer 120, Est GFR (MDRD) Non-Af 99, BUN/Creatinine Ratio 17.0, Glucose 122 H, Calcium 8.5, Total Bilirubin 1.60 H, Direct Bilirubin 0.71 H, AST 40 H, ALT 141 H, Alkaline Phosphatase 199 H, Total Protein 6.5, Albumin 3.1 L, Globulin 3.4 11/01/22 06:38: POC Glucose 132 H Radiography Diagnostic Testing: Radiology Impression MRCP 10/31/22 06:52 IMPRESSION: Cholelithiasis and choledocholithiasis without abnormal dilatation of the biliary system. Electronically Signed: Sergey Bruno MD at 17:29 EDT , Physical Exam Const alert and no apparent distress HEENT head/scalp atraumatic Head and Scalp: normocephalic Resp normal respiratory effort, no retractions, no use of accessory muscles and clear to auscultation bilaterally Cardio regular rate, regular rhythm, S1 normal heart sound and S2 normal heart sound GI normal to inspection, nondistended, normoactive bowel sounds, soft to palpation, non-tender and non-distended Extremity normal to inspection Assessment & Plan Assessment/Plan (1) Acute cholecystitis: PLAN: CT shows: cholelithiasis and GB wall thickening w minimal pericholecystic edema. US: GB wall thickening, perichoecystic fluid, stones highly suggestive of acute cholecystis Seen by GS and requests GI eval abx w pip/tazo MRCP: cholelithiasis and choledocholithiases w/o abnormal dilation of the biliary system. Plan for cholecystectomy 11/01 PLAN: Plan Chronic medical conditions: ? Type 2 diabetes: Metformin held. Glucose 209 on admit. Sliding scale insulin while inpatient. ? Hypertension: Continue home telmisartan 40 mg at night. ? Hyperlipidemia: Holding home statin in setting of elevated liver enzymes as noted above. ? Depression: Continue home fluoxetine, lorazepam at night as needed. DVT prophylaxis: Lovenox CODE STATUS: Full code, verified Expected disposition: Home, TBD
[2022-11-01] MEDS: Fluticasone 0.05% 1 SPRAY NASAL.SRY 2 SPRAY NASAL ×2 (09:56→21:23)
[2022-11-01] MEDS: Dorzolamide 2% 10ml Bottle 1 DRP EACH EYE ×2 (11:12→21:22)
[2022-11-01] MEDS: Timolol 0.5% 5ML OPTH.BTL 1 DRP OPHTHALMIC ×2 (11:14→21:23)
[2022-11-01 11:47] LABS: Bedside Glucose 118 mg/dL (74-106)
[2022-11-01] MEDS: Lactated Ringers 1,000 ML 100 ML IV ×2 (13:43→18:58)
--- NOTE | 2022-11-01 15:00 | GALL_PTH ---
PATIENT: NICHOLE HOOD LOC: [facility] U#:[id number] AGE/SX: 67/M ROOM: [facility] RE10/30/[address]: Dr. Jim Junior DO : 1955 BED: 1 DIS: 11/02/2022 SPEC #: [id number] RECD: 11/02/22 10:13 STATUS: DORETHA OTONIEL #: [id number] CESAR: 11/01/22 15:[address]: Marcos Lam DEPT: SURGICAL PATHOLOGY RECD BY: Carmina Menezes ENTERED: 11/02/22 12:04 SP TYPE: GALLBLADDE OTHR DR: DO Dr. Jim Diaz DO Dr. Michael Bortz, MD Dr. Nolan Byler, Tissues: Gallbladder, NOS Procedures: Surgery Specimen Level III Comments: @ Ordering doctor for SUIII edited from to @ by JUHI at 11/02/22 1453 @ Submitting doctor edited from to @ by RGOOD at 11/02/22 1453 HEADER OPERATION: Laparoscopic cholecystectomy with IOC PRE-OP DIAGNOSIS: Acute cholecystitis TISSUE SUBMITTED: Gallbladder MICROSCOPIC DIAGNOSIS Gallbladder, cholecystectomy: Acute and chronic cholecystitis and cholelithiasis. SONNY:bal 11/03/2022 MICROSCOPIC DESCRIPTION Slides are reviewed. GROSS DESCRIPTION Received is one container labeled with the patient's name and designated gallbladder. The specimen consists of a gallbladder measuring 8.5 cm in length and up to 3.5 cm in diameter. The external surface is pink-anna, smooth and glistening for the most part. Focally it is granular, hemorrhagic and contains cautery artifact. The gallbladder contains green-yellow mucoid bile and multiple brown-black, irregular stones measuring in aggregate 2.0 x 1.5 x 0.5 cm and 0.1 to 0.3 cm in greatest dimension. The mucosa is bile-stained and without any mass lesions. The gallbladder wall measures up to 0.5 cm in thickness. Increased amount of subserosal fat is noted. Paint Striping Machine Operator sections from the gallbladder and the cystic duct are submitted in one cassette. / SONNY:bal 11/02/2022 TC:2 CPT: 26931
--- NOTE | 2022-11-01 15:45 | RAD_ITS ---
CLINICAL HISTORY: Male, 67 years old. Pain PROCEDURE: CHOLANGIOGRAM - intraoperative FLUOROSCOPY TIME (if supplied): (70.9) seconds Placement of the catheter and the procedure were performed by: [Operating surgeon Fluoroscopy was provided by radiology supervisor, who was present in the room time of the procedure. TECHNIQUE: (Utilizing fluoroscopic guidance intraoperative cholangiogram was performed in usual fashion.) Numerous fluoroscopic guided images were obtained to document findings during surgery. For more complete information recommend correlation with surgical notes RAD/Cholangiogram/ O R,Initial IMPRESSION: Fluoroscopic guided intraoperative cholangiogram Electronically Signed: Juve Wilkins MD at 17:18 EDT ,
[2022-11-01] MEDS: Bupivacaine Mpf 0.5% 30 ML VIAL (16:53)
--- NOTE | 2022-11-01 16:55 | PCM.OPRPT ---
Problems Associated Problem List Diagnoses (1) Cholelithiasis: Report of Operation Date of Procedure: 11/01/22 Pre-Operative Diagnosis: Cholecystitis with choledocholithiasis Post-Operative Diagnosis: Acute on chronic cholecystitis with choledocholithiasis Surgery/Procedure Performed:: Laparoscopic cholecystectomy with intraoperative cholangiogram Description of Surgical Findings:: ? Evidence of acute on chronic inflammation within the gallbladder whitened and a thickened wall with numerous attachments to the nearby omentum ? Initially positive cholangiogram with significant debris in the distal common bile duct. However following administration of glucagon intravenously and significant flushing it appeared that the majority of this debris had cleared the ampulla of Vater. Surgeon: Marcos Lam vp informatics: Veronica Luciano Type of Anesthesia: General/Supplemental Anesthesiologist: Job Asif Specimen's removed: Gallbladder Drains: None Estimated Blood Loss (mL): 15 Description of Procedure: After proper identification in the preoperative holding area the patient was brought to the operating room where he was positioned supine on the operating room table. Preoperatively SCDs were applied and antibiotics (2 g Ancef since we were between doses on patient's continuously ordered Zosyn) were administered. General anesthesia was then induced. Patient's abdomen was prepped and draped in usual sterile fashion. A formal timeout was conducted to confirm both patient and the procedure. Procedure was begun with a supraumbilical incision which was extended deeply down to the level of the fascia. The fascia was elevated and incised, as well as the peritoneum. A finger sweep was performed to ensure there were no underlying adhesions and a 12 mm balloon trocar was inserted. Pneumoperitoneum was established at 15 mmHg. 3 additional trocars were placed in the epigastrium and in the right upper quadrant (3 x 5 mm). Inspection of the peritoneum revealed no inadvertent injury to the viscera below. The gallbladder was visualized with evidence of significant chronic inflammation and some acute changes as well. Numerous adhesions to the gallbladder infundibulum from the omentum were bluntly taken down. Then the gallbladder fundus was then grasped and elevated cephalad. Using careful dissection the peritoneum was opened and the structures of the hepatocystic triangle were delineated. Once the critical view of safety was obtained, the cystic duct was singly clipped and partially divided with a ductotomy. The proximal duct was milked of debris. Using an [place] clamp, a cholangiocatheter was fed into the proximal segment of the cystic duct and clamped into place. Under fluoroscopy a cholangiogram was then obtained showing a standard length cystic duct flowing into a common bile duct with partially antegrade flow of contrast into the duodenum due to numerous filling defects in the distal common bile duct. Retrograde flow through the common hepatic duct into the right and left hepatic ducts was noted. Given the filling defects I asked anesthesia to administer 1 mg of glucagon intravenously and then waited 5 minutes for the medication to have its desired effect. The cystic duct was irrigated with saline and the cholangiogram was repeated with magnification views of the distal common bile duct does not enter the duodenum. This appeared to show resolution of the majority if not all of the minute filling defects at the level of the ampulla flow of contrast into the duodenum. Satisfied with this result, the cholangiocatheter was withdrawn and the proximal cystic duct was sealed with clips and the cystic duct was completely transected. The same process was used for the cystic artery. The gallbladder was then removed from the gallbladder fossa with the use of electrocautery. Selective electrocautery was used to obtain hemostasis in the gallbladder fossa. The gallbladder was placed in an Endo Catch bag and removed from the peritoneum. Morison's pouch was irrigated and the effluent was suctioned free of the peritoneum. Hemostasis was again confirmed. Pneumoperitoneum was evacuated and the fascia of the supraumbilical 12 mm port site was closed with #1Vicryl in a [id number] fashion. A total of 30 mL of anesthetic was injected at the port sites for postoperative pain control. The skin of each port site was then closed in subcuticular fashion using 4-0 Monocryl. Steri-Strips and bandages were applied as dressings. Patient tolerated the procedure well without any apparent complications. On emergence from their anesthetic the patient was taken to PACU for ongoing recovery. Grafts/Implants Used: N/A Complications None Admit VTE Documentation VTE Mechan Device Prophylaxis: SCD's Procedures Digestive 40xxx-49xxx: 63193 Laparo cholecystectomy/graph
--- NOTE | 2022-11-01 17:35 | PN.GI_ITS ---
Subjective Subjective Patient does not have any abdominal pain at this time. He is scheduled for cholecystectomy today. His MRCP did show a small stone in his distal common bile duct. Objective Data Objective Data Vital Signs: Vital Signs Temp Pulse Resp BP Pulse Ox O2 Del Method 97.8 F 86 16 154/85 H 95 Room Air 11/01/22 17:10 11/01/22 17:15 11/01/22 17:15 11/01/22 17:15 11/01/22 17:15 11/01/22 17:15 Oxygen Delivery Method Room Air Weight: 218 lb 11.177 oz Body Mass Index (BMI) 29.6 Intake & Output: Intake and Output for Last 24 Hours 10/30/22 10/31/22 11/01/22 23:59 23:59 23:59 Intake Total 50 / 200 1396.25 / 1696.25 2269.17 / 2269.17 Balance 50 / 200 1396.25 / 1696.25 2269.17 / 2269.17 Lab / Micro Data 11/01/22 06:04 11/01/22 06:04 Labs: Laboratory Results - last 24 hr 10/31/22 21:16: POC Glucose 169 H 11/01/22 06:04: WBC 6.0, RBC 4.46 L, Hgb 14.9, Hct 41.8, MCV 93.7, MCH 33.4 H, MCHC 35.6, RDW Std Deviation 42.0, RDW Coeff of Tejinder 12.1, Plt Count 231, MPV 9. 0, Immature Gran % (Auto) 0.200, Neut % (Auto) 60.7, Lymph % (Auto) 25.4, [place] % (Auto) 10.8 H, Eos % (Auto) 2.7, Baso % (Auto) 0.2, Absolute Neuts (auto) 3.7, Absolute Lymphs (auto) 1.53, Nucleated RBC % 0, Sodium 138, Potassium 3.9, Chloride 107, Carbon Dioxide 26.0, Anion Gap 5, BUN 14, Creatinine 0.82, Estim Creat Clear Calc 97.26, Est GFR (MDRD) Af Amer 120, Est GFR (MDRD) Non-Af 99, BUN/Creatinine Ratio 17.0, Glucose 122 H, Calcium 8.5, Total Bilirubin 1.60 H, Direct Bilirubin 0.71 H, AST 40 H, ALT 141 H, Alkaline Phosphatase 199 H, Total Protein 6.5, Albumin 3.1 L, Globulin 3.4 11/01/22 06:38: POC Glucose 132 H 11/01/22 11:16: POC Glucose 118 H Radiography Diagnostic Testing: Radiology Impression Cholangiogram 11/01/22 15:45 IMPRESSION: Fluoroscopic guided intraoperative cholangiogram Electronically Signed: Juve Wilkins MD at 17:18 EDT , Physical Exam Const alert and no apparent distress HEENT head/scalp atraumatic Head and Scalp: normocephalic Resp normal respiratory effort, no retractions, no use of accessory muscles and clear to auscultation bilaterally Cardio regular rate, regular rhythm, S1 normal heart sound and S2 normal heart sound GI normal to inspection, nondistended, normoactive bowel sounds, soft to palpation, non-tender and non-distended Extremity normal to inspection Assessment & Plan Assessment/Plan (1) Acute cholecystitis: PLAN: Plan Patient is a 67-year-old male with history of hypertension, type 2 diabetes, depression, hyperlipidemia and recurrent epigastric pain with known gallbladder sludge and elevated liver enzymes who presented to [facility] ED on 10/30/2022 with recurrent abdominal pain. Acute cholecystitis, elevated liver enzymes The differential diagnosis for his cholestatic jaundice with elevated amylase and lipase is choledocholithiasis, less likely medication induced injury, ascending cholangitis, Mirizzi syndrome. His LFTs are improving. I would recommend MRCP to evaluate his hepatobiliary system. Continue IV fluids and recheck amylase, lipase. Check ESR, CRP. Check acute hepatitis profile. CT abdomen pelvis shows cholelithiasis and gallbladder wall thickening with some pericholecystic edema. Gallbladder ultrasound also shows gallbladder wall thickening and pericholecystic fluid, with stones highly suggestive of acute cholecystitis despite a negative sonographic Justice sign; also shows nonspecific intrahepatic biliary ductal dilation, no significant dilation of common bile du ct. Abnormal labs of AST 124, ALT 289, alk phos 297, total bilirubin 5.0, direct bilirubin 3.9, lipase 194, amylase 123. ? Admit under inpatient status to PCU. 11/01-his LFTs continue to improve. He will undergo cholecystectomy with intraoperative cholangiogram. If it does show a stone that he will likely need ERCP. Charges/Coding Visit Charges Inpatient E&M: 41190 Subs Hosp L3
[2022-11-01 18:42] LABS: Bedside Glucose 133 mg/dL (74-106)
[2022-11-01] MEDS: Loratadine 10 MG Tablet PO (18:52)
[2022-11-01] MEDS: FLUoxetine 10 MG Capsule PO (18:52)
[2022-11-01 19:13] LABS: Bedside Glucose 109 mg/dL (74-106)
[2022-11-01] MEDS: Pantoprazole Sodium 40 MG Tablet PO (21:22)
[2022-11-01] MEDS: Losartan Potassium 50 MG Tablet PO (21:22)
[2022-11-01] MEDS: Latanoprost 0.005% 1 Bottle 1 DRP EACH EYE (21:23)
[2022-11-01] MEDS: Insulin Lispro 100 UNIT/ML INSULN.PEN SC (21:24)
--- NOTE | 2022-11-01 21:40 | NURSING ---
called pharmacy to verify what to do with 2200 zosyn dose. 1400 zosyn dose was hang at 1800 d/t pt was in sx. [place] states to skip 2200 dose and resume 0600 in am.
[2022-11-01 21:47] LABS: Bedside Glucose 151 mg/dL (74-106)
[2022-11-01] MEDS: LORazepam 1 MG Tablet 2 MG PO (22:24)
[2022-11-02 02:37] VITALS: BP 124/64; PULSE 69; RESP 16; TEMP 36.6; O2SAT 95
[2022-11-02 02:54] LABS: Bedside Glucose 149 mg/dL (74-106)
[2022-11-02] MEDS: Piperacil/Tazobactam 3.375 GM in 0.9% Normal Saline (50mL MB+) 50 ML IV (05:10)
[2022-11-02] MEDS: Lactated Ringers 1,000 ML 100 ML IV (05:11)
[2022-11-02] MEDS: Insulin Lispro 100 UNIT/ML INSULN.PEN SC (06:17)
[2022-11-02 06:25] VITALS: BP 141/69; PULSE 69; RESP 16; TEMP 36.8; O2SAT 94
[2022-11-02 06:27] LABS: AST(SGOT) 64 U/L (15-37); Alanine Aminotransfer ALT/SGPT 155 U/L (16-61); Albumin, Serum 3.1 g/dL (3.2-5.0); Alkaline Phosphatase 187 U/L (45-117); Bilirubin, Direct 0.64 mg/dL (0.00-0.30); Globulin 3.7 g/dL (2.2-4.2); Protein, Total 6.8 g/dL (6.4-8.2)
[2022-11-02 06:38] LABS: Bedside Glucose 151 mg/dL (74-106)
[2022-11-02 07:20] VITALS: O2SAT 96
[2022-11-02 07:35] VITALS: BP 141/77; PULSE 64; RESP 14; TEMP 36.6; O2SAT 99
--- NOTE | 2022-11-02 09:06 | PCM.PN.SRG ---
Subjective Subjective Patient is a 67 y/o M I am following s/p laparoscopic cholecystectomy with IOC by Dr. Lam on 11/03. Patient is recovering very well. Patient denies pain/discomfort in the abdomen and at the incision sites. Patient denies nausea, vomiting, fever. Objective Data Objective Data Vital Signs: Vital Signs Temp Pulse Resp BP Pulse Ox O2 Del Method O2 Flow Rate 97.9 F 64 14 141/77 H 99 Room Air 2 11/02/22 07:35 11/02/22 07:35 11/02/22 07:35 11/02/22 07:35 11/02/22 07:35 11/02/22 07:35 11/02/22 06:25 Oxygen Flow Rate (L/min) 2 Oxygen Delivery Method Room Air Weight: 218 lb 11.177 oz Body Mass Index (BMI) 29.6 Intake & Output: Intake and Output for Last 24 Hours 10/31/22 11/01/22 11/02/22 23:59 23:59 23:59 Intake Total 1396.25 / 1696.25 2844.17 / 2844.17 1000 / 1000 Balance 1396.25 / 1696.25 2844.17 / 2844.17 1000 / 1000 Lab / Micro Data 11/01/22 06:04 11/01/22 06:04 Labs: Laboratory Results - last 24 hr 11/01/22 11:16: POC Glucose 118 H 11/01/22 18:25: POC Glucose 133 H 11/01/22 18:47: POC Glucose 109 H 11/01/22 21:21: POC Glucose 151 H 11/02/22 02:34: POC Glucose 149 H 11/02/22 05:40: Total Bilirubin 1.20 H, Direct Bilirubin 0.64 H, AST 64 H, ALT 155 H, Alkaline Phosphatase 187 H, Total Protein 6.8, Albumin 3.1 L, Globulin 3.7 11/02/22 06:16: POC Glucose 151 H Radiography Diagnostic Testing: Radiology Impression Cholangiogram 11/01/22 15:45 IMPRESSION: Fluoroscopic guided intraoperative cholangiogram Electronically Signed: Juve Wilkins MD at 17:18 EDT , Physical Exam GI soft to palpation and non-tender GI Narrative: Abdomen- Incisions c/d/i. No erythema or infection noted. Op-sites intact Auscultation: hypoactive bowel sounds Assessment & Plan Assessment/Plan (1) Biliary obstruction: (2) Acute cholecystitis: PLAN: Patient has been evaluated in conjunction with Dr. Lam Patient appears to be recovering well from surgery Patient's liver enzymes continue to decrease Cholangiogram was completed during surgery and appeared to have contrast flow into the duodenum following administration of 1 mg of glucagon. Cholangiogram images appeared to show resolution of the majority or all of the filling defects. From a surgery standpoint, patient may be discharged to home Recommend follow-up in [address] Lam Obtain a CMP in 1 week prior to the follow-up appointment Charges/Coding Visit Charges Inpatient E&M: 02208 Subs Hosp L1 (no charge; post-op)
[2022-11-02] MEDS: Enoxaparin 40 MG/0.4 ML Syringe SC (09:27)
[2022-11-02] MEDS: Loratadine 10 MG Tablet PO (09:27)
[2022-11-02] MEDS: Fluticasone 0.05% 1 SPRAY NASAL.SRY 2 SPRAY NASAL (09:27)
[2022-11-02] MEDS: Dorzolamide 2% 10ml Bottle 1 DRP EACH EYE (09:28)
[2022-11-02] MEDS: Timolol 0.5% 5ML OPTH.BTL 1 DRP OPHTHALMIC (09:28)
--- NOTE | 2022-11-02 09:38 | PCM.PN.HOSP ---
Subjective Subjective Feels well. No pain. Objective Data Objective Data Vital Signs: Vital Signs Temp Pulse Resp BP Pulse Ox O2 Del Method O2 Flow Rate 36.6 C 64 14 141/77 H 99 Room Air 2 11/02/22 07:35 11/02/22 07:35 11/02/22 07:35 11/02/22 07:35 11/02/22 07:35 11/02/22 07:35 11/02/22 07:20 Oxygen Flow Rate (L/min) 2 Oxygen Delivery Method Room Air Weight: 99.2 kg Body Mass Index (BMI) 29.6 Intake & Output: Intake and Output for Last 24 Hours 10/31/22 11/01/22 11/02/22 23:59 23:59 23:59 Intake Total 1396.25 / 1696.25 2844.17 / 2844.17 1050 / 1050 Balance 1396.25 / 1696.25 2844.17 / 2844.17 1050 / 1050 Lab / Micro Data 11/01/22 06:04 11/01/22 06:04 Labs: Laboratory Results - last 24 hr 11/01/22 11:16: POC Glucose 118 H 11/01/22 18:25: POC Glucose 133 H 11/01/22 18:47: POC Glucose 109 H 11/01/22 21:21: POC Glucose 151 H 11/02/22 02:34: POC Glucose 149 H 11/02/22 05:40: Total Bilirubin 1.20 H, Direct Bilirubin 0.64 H, AST 64 H, ALT 155 H, Alkaline Phosphatase 187 H, Total Protein 6.8, Albumin 3.1 L, Globulin 3.7 11/02/22 06:16: POC Glucose 151 H Radiography Diagnostic Testing: Radiology Impression Cholangiogram 11/01/22 15:45 IMPRESSION: Fluoroscopic guided intraoperative cholangiogram Electronically Signed: Juve Wilkins MD at 17:18 EDT , Physical Exam Const alert and no apparent distress Resp normal respiratory effort, no retractions, no use of accessory muscles and clear to auscultation bilaterally Cardio regular rate, regular rhythm, S1 normal heart sound and S2 normal heart sound GI normal to inspection, nondistended, normoactive bowel sounds, soft to palpation, non-tender and non-distended Assessment & Plan Assessment/Plan (1) Acute cholecystitis: PLAN: CT shows: cholelithiasis and GB wall thickening w minimal pericholecystic edema. US: GB wall thickening, perichoecystic fluid, stones highly suggestive of acute cholecystis Seen by GS and requests GI eval abx w pip/tazo MRCP: cholelithiasis and choledocholithiases w/o abnormal dilation of the biliary system. Lap cholecystectomy 11/01 DC Follow up with general surgery. PLAN: Plan Chronic medical conditions: ? Type 2 diabetes: Metformin held. Glucose 209 on admit. Sliding scale insulin while inpatient. ? Hypertension: Continue home telmisartan 40 mg at night. ? Hyperlipidemia: Holding home statin in setting of elevated liver enzymes as noted above. ? Depression: Continue home fluoxetine, lorazepam at night as needed. DVT prophylaxis: Lovenox CODE STATUS: Full code, verified Expected disposition: Home
--- NOTE | 2022-11-02 10:31 | DS.PCM_ITS ---
Providers Date of Admission: 10/30/22 Primary Care Physician: Dr. Nirav Lewis, Consultations 10/30/22 23:05 Consult: Gastroenterology Routine Consulting Provider: [facility] Reason for Consult: Acute cholecystitis EMERGENT Consult: No Notified: Yes Date Notified: 10/31/22 Time Notified: 06:46 Method of Notification: Text Consult: General Surgery Routine Consulting Provider: Marcos Lam Reason for Consult: Acute cholecystitis EMERGENT Consult: No Notified: Yes Date Notified: 10/31/22 Time Notified: 06:47 Method of Notification: Text Reason For Visit: ACUTE CHOLECYSTITIS Diagnosis Discharge Diagnosis (1) Acute cholecystitis: Status: Acute Code(s): K81.0 - Acute cholecystitis Plan: CT shows: cholelithiasis and GB wall thickening w minimal pericholecystic edema. US: GB wall thickening, perichoecystic fluid, stones highly suggestive of acute cholecystis Seen by GS and requests GI eval abx w pip/tazo MRCP: cholelithiasis and choledocholithiases w/o abnormal dilation of the biliary system. Lap cholecystectomy 11/01 DC Follow up with general surgery. Plan Chronic medical conditions: ? Type 2 diabetes: Metformin held. Glucose 209 on admit. Sliding scale insulin while inpatient. ? Hypertension: Continue home telmisartan 40 mg at night. ? Hyperlipidemia: Holding home statin in setting of elevated liver enzymes as noted above. ? Depression: Continue home fluoxetine, lorazepam at night as needed. DVT prophylaxis: Lovenox CODE STATUS: Full code, verified Expected disposition: Home Medications at Discharge Home Medications eszopiclone 2 mg tablet (Lunesta) 2 mg PO QHS 12/14/21 lorazepam 2 mg tablet 2 mg PO QHS Sleep 12/14/21 metformin 500 mg tablet 500 mg PO BID diabetes 12/14/21 atorvastatin 20 mg tablet 20 mg PO DAILY 02/25/22 betamethasone dipropionate 0.05 % topical cream 1 applic topical DAILY PRN Skin Cleansing 02/25/22 dutasteride 0.5 mg capsule 0.5 mg PO DAILY 02/25/22 fluoxetine 10 mg capsule 10 mg PO DAILY 02/25/22 telmisartan 40 mg tablet 40 mg PO QHS blood pressure 02/25/22 omega 9-hoh-iek-fish oil 300 mg-1,000 mg capsule (Fish Oil) 1 cap PO DAILY supplement 04/08/22 dorzolamide 2 % eye drops 1 drp EACH EYE BID 06/27/22 latanoprost 0.005 % eye drops 1 drp EACH EYE QPM 06/27/22 pantoprazole 40 mg tablet,delayed release 40 mg PO QHS GERD 06/30/22 dicyclomine 20 mg tablet 20 mg PO TID PRN abdominal pain #60 tabs 07/15/22 fluticasone propionate 50 mcg/actuation nasal spray,suspension 2 spray intranasal Q12H allergies 10/30/22 loratadine 10 mg tablet (Allergy Relief (loratadine)) 10 mg PO DAILY 10/30/22 timolol maleate 0.5 % eye drops 1 drp ophthalmic (eye) BID glacoma 11/01/22 Hospital Course Operations None Procedures - (lap cholecystectomy) Weight / BMI Weight Weight: 99.2 kg Body Mass Index (BMI) 29.6 ABG / Lab / Microbiology Data 11/01/22 06:04 11/01/22 06:04 Laboratory: Laboratory Results - last 24 hr 11/01/22 11:16: POC Glucose 118 H 11/01/22 18:25: POC Glucose 133 H 11/01/22 18:47: POC Glucose 109 H 11/01/22 21:21: POC Glucose 151 H 11/02/22 02:34: POC Glucose 149 H 11/02/22 05:40: Total Bilirubin 1.20 H, Direct Bilirubin 0.64 H, AST 64 H, ALT 155 H, Alkaline Phosphatase 187 H, Total Protein 6.8, Albumin 3.1 L, Globulin 3.7 11/02/22 06:16: POC Glucose 151 H Radiography Diagnostic Testing: Radiology Impression Cholangiogram 11/01/22 15:45 IMPRESSION: Fluoroscopic guided intraoperative cholangiogram Electronically Signed: Juve Wilkins MD at 17:18 EDT , D/C Instructions Discharge Diet: - (bland diet advance as tolerated. ) Meaningful Use Info Meaningful Use Diagnoses (Choose all that apply): None applicable Discharge Plan Admission Admit Date/Time: 10/30/22 20:24 Primary Reason for Your Visit: cholecystitis. Attending Provider: Jim Junior Primary Care Provider: Nirav Lewis Consulting Providers: Marcos Lam; Kaiden Flores Instructions Additional Instructions / Restrictions: Cholecystectomy Diet ? Start light with soups and soft bland foods. You may advance diet as tolerated. Activity ? You may drive in 3-5 days but not while taking narcotic pain medication. ? I encourage walking. You may go up steps, one at a time. ? Do not swim or use hot tubs for 2 weeks. ? For comfort, you may use warm compresses or ice as needed for 15-20 minutes at a time. Lifting ? You may lift up to 15 pounds for the first 2 weeks. Dressings/Incision ? You may shower in 2 days ? Do NOT tub bathe for 1 week ? Leave plastic dressings on for 2 days. ? When plastic dressings are removed, you will find steri strips. It is okay to continue showering with them in place, pat them dry. ? You may remove steri-strips after 1 week. We recommend getting them soaking wet for easier removal. Medications ? Anesthesia used during surgery and pain medications may cause constipation. I recommend initiating on the day of surgery a fiber supplement like, Metamucil, Citrucel, FiberCon, Benefiber, or a generic form of these medications. 1 heaping tablespoon in water daily. You may continue to utilize any bowel regimen or oral laxatives that you routinely take. ? As long as you are not intolerant to Tylenol, acetaminophen, ibuprofen, Motrin, Advil, Aleve, or similar medications, I would recommend transitioning to these fazo-dox-vanjzzm medicines as soon as possible instead of continued use of narcotic pain medication. Follow up ? You should call [facility] soon after surgery, at [phone] option 1 to make a follow up appointment for 7 days after your surgery. You will need to obtain a CMP blood work 30 minutes prior to your follow-up appointment in the lab. We have a lab located in the outpatient pavilion on the ground floor as you come in. Discharge Orders/Prescriptions Prescriptions: Continued metformin 500 mg tablet 500 mg PO BID lorazepam 2 mg tablet 2 mg PO QHS eszopiclone [Lunesta] 2 mg tablet 2 mg PO QHS fluoxetine 10 mg capsule 10 mg PO DAILY atorvastatin 20 mg tablet 20 mg PO DAILY dutasteride 0.5 mg capsule 0.5 mg PO DAILY telmisartan 40 mg tablet 40 mg PO QHS betamethasone dipropionate 0.05 % cream 1 applic topical DAILY PRN (Reason: Skin Cleansing) Hold Instructions: not taking dicyclomine 20 mg tablet 20 mg PO TID PRN (Reason: abdominal pain) Qty: 60 1RF omega 9-scq-esd-fish oil [Fish Oil] 300-1,000 mg capsule 1 cap PO DAILY latanoprost 0.005 % Drops 1 drp EACH EYE QPM dorzolamide 2 % Drops 1 drp EACH EYE BID pantoprazole 40 mg tablet,delayed release (DR/EC) 40 mg PO QHS loratadine [Allergy Relief (loratadine)] 10 mg tablet 10 mg PO DAILY fluticasone propionate 50 mcg/actuation spray,suspension 2 spray intranasal Q12H Rx Instructions: administer into each nostril timolol maleate 0.5 % drops 1 drp ophthalmic (eye) BID Patient Comments: Apply 1 drop in both eyes twice a day Other Ambulatory Orders: Comprehensive Metabolic Profil (Routine) Timeframe: 20221109 Facility: [facility] - Location: Laboratory Ordered By: Zenobia BEEBE Referrals / Follow Up: Marcos Lam MD [Med Staff - Active Staff] - (Follow-up in 1 week. Please call our office for an appointment) Nirav Lewis DO [Primary Care Provider] - Disposition Disposition (needs filled in before D/C Order can be placed): Home, Self Care Charges/Coding Visit Charges Inpatient E&M: 91170 Disch Hosp
[2022-11-02] MEDS: FLUoxetine 10 MG Capsule PO (10:40)
--- NOTE | 2022-11-02 10:56 | PHA.DC_ITS ---
Pharmacy [facility] Reconciliation Pharmacy Service has performed discharge medication reconciliation for this patient. The patient's discharge medication list was reviewed for discrepancies and discrepancies were resolved. Medications at Discharge Home Medications eszopiclone 2 mg tablet (Lunesta) 2 mg PO QHS 12/14/21 lorazepam 2 mg tablet 2 mg PO QHS Sleep 12/14/21 metformin 500 mg tablet 500 mg PO BID diabetes 12/14/21 atorvastatin 20 mg tablet 20 mg PO DAILY 02/25/22 betamethasone dipropionate 0.05 % topical cream 1 applic topical DAILY PRN Skin Cleansing 02/25/22 dutasteride 0.5 mg capsule 0.5 mg PO DAILY 02/25/22 fluoxetine 10 mg capsule 10 mg PO DAILY 02/25/22 telmisartan 40 mg tablet 40 mg PO QHS blood pressure 02/25/22 omega 4-ztm-hrl-fish oil 300 mg-1,000 mg capsule (Fish Oil) 1 cap PO DAILY supplement 04/08/22 dorzolamide 2 % eye drops 1 drp EACH EYE BID 06/27/22 latanoprost 0.005 % eye drops 1 drp EACH EYE QPM 06/27/22 pantoprazole 40 mg tablet,delayed release 40 mg PO QHS GERD 06/30/22 dicyclomine 20 mg tablet 20 mg PO TID PRN abdominal pain #60 tabs 07/15/22 fluticasone propionate 50 mcg/actuation nasal spray,suspension 2 spray intranasal Q12H allergies 10/30/22 loratadine 10 mg tablet (Allergy Relief (loratadine)) 10 mg PO DAILY 10/30/22 timolol maleate 0.5 % eye drops 1 drp ophthalmic (eye) BID glacoma 11/01/22
[2022-11-02 12:19] LABS: Bedside Glucose 137 mg/dL (74-106)
== END 2022-11-02 14:28 | disposition home or self-care (01) | DRG 419 ==
LOC: ED 20:24 → PCU 21:54
PROVIDERS: Physician Assistant; Surgery; Admitting Provider Hospitalist; Emergency Provider Emergency Medicine; PCP Family Medicine
PROC: (CPT 47610; principal; 2022-11-01 14:40)
DX: K80.66 Calculus of gallbladder and bile duct with acute and chronic cholecystitis without obstruction (principal); E11.65 Type 2 diabetes mellitus with hyperglycemia; I10 Essential (primary) hypertension; F32.A Depression, unspecified; E78.5 Hyperlipidemia, unspecified; K21.9 Gastro-esophageal reflux disease without esophagitis; H40.9 Unspecified glaucoma; Z79.84 Long term (current) use of oral hypoglycemic drugs; Z79.899 Other long term (current) drug therapy
CPT/HCPCS: 36415; 74177; 74181; 74300; 76000; 76705; 80048; 80076; 81001; 82150; 82962; 83690; 85025; 85027; 85610; 88304; 93005; 94668; 99284; J7120; Q9967; A4216; J1610; J2405

== ENCOUNTER → 2022-11-08 | Outpatient (CLI) | payer MEDICARE, OTHER, SELFPAY ==
[2022-11-08 15:16] LABS: AST(SGOT) 16 U/L (15-37); Alanine Aminotransfer ALT/SGPT 56 U/L (16-61); Albumin, Serum 3.6 g/dL (3.2-5.0); Alkaline Phosphatase 146 U/L (45-117); Anion Gap 4 (5-15); BUN 13 mg/dL (7-18); BUN/Creat Ratio 14.2 RATIO (10-20); Calcium,Total 8.9 mg/dL (8.5-10.1); Chloride 103 mmol/L (98-107); Creatinine, Serum 0.92 mg/dL (0.70-1.30); EST Glomerular Filtration Rate 88 mL/min (>60); Est Glom Filt Rate - Afr Amer 106 mL/min (>60); Globulin 3.6 g/dL (2.2-4.2); Glucose 89 mg/dL (74-106); Potassium 3.8 mmol/L (3.5-5.1); Protein, Total 7.2 g/dL (6.4-8.2); Sodium Level 138 mmol/L (136-145)
== END | disposition home or self-care (01) ==
PROVIDERS: PCP Family Medicine; Referring Provider Physician Assistant; Visit Provider Physician Assistant
DX: K80.20 Calculus of gallbladder without cholecystitis without obstruction (principal)
CPT/HCPCS: 36415; 80053

== ENCOUNTER → 2023-08-30 | Outpatient (CLI) | payer MEDICARE, OTHER, SELFPAY ==
--- NOTE | 2023-08-30 07:21 | ECHOD_ITS ---
Reason For Study: SUMMERS Procedure This was a 2D Doppler, Color Flow transthoracic echocardiogram. Exam performed in department. Left Ventricle Normal LV size. Mild concentric left ventricular hypertrophy. The left ventricular ejection fraction is 60 %. Normal diastology for age. Right Ventricle Normal right ventricle. Atria The left and right atria are normal. Mitral Valve Trivial mitral valve insufficiency. Tricuspid Valve Trivial tricuspid valve insufficiency. Normal pulmonary artery pressure. Aortic Valve Trisinus/trileaflet aortic valve. Pulmonic Valve Trivial pulmonic valve insufficiency. Great Vessels Mildly dilated aortic root. Pericardium/Pleural No pericardial effusion. MMode/2D Measurements & Calculations LVIDd: 4.6 cm IVSd: 1.2 cm Ao root diam: 3.7 cm LVIDs: 2.6 cm LVPWd: 1.2 cm RVDd: 3.0 cm FS: 43.7 % LAV(MOD-bp): 46.8 ml LVAd ap4: 30.9 cm2 LVAd ap2: 20.7 cm2 LAV(MOD-bp) Indexed: 21.1 ml/m2 LVLd ap4: 7.7 cm LVLd ap2: 7.7 cm LAV(MOD-sp2): 45.3 ml EDV(MOD-sp4): 101.8 ml EDV(MOD-sp2): 49.1 ml LAV(MOD-sp4): 45.7 ml EDV(sp4-el): 105.7 ml EDV(sp2-el): 47.4 ml LVAs ap4: 19.4 cm2 LVAs ap2: 12.2 cm2 LVLs ap4: 7.1 cm LVLs ap2: 6.4 cm ESV(MOD-sp4): 45.1 ml ESV(MOD-sp2): 20.8 ml ESV(sp4-el): 45.5 ml ESV(sp2-el): 19.6 ml EF(MOD-sp4): 55.7 % EF(MOD-sp2): 57.7 % EF(sp4-el): 57.0 % SV(MOD-sp4): 56.7 ml SV(MOD-sp2): 28.3 ml SV(sp4-el): 60.2 ml LA dimension(2D): 3.7 cm LA A4 area: 16.6 cm2 RA A4 area: 12.1 cm2 TAPSE: 2.1 cm Time Measurements MV dec time: 0.20 sec Doppler Measurements & Calculations MV E max chema: 78.1 cm/sec Lat Peak E' Chema: 9.6 cm/sec Med Peak E' Chema: 7.4 cm/sec MV A max chema: 82.6 cm/sec E/E' lat: 8.2 E/E' med: 10.5 MV E/A: 0.95 MV V2 max: 91.1 cm/sec MV P1/2t max chema: 81.2 cm/sec Ao V2 max: 109.5 cm/sec MV max P.3 mmHg MV P1/2t: 64.0 msec Ao max P.8 mmHg MV V2 mean: 54.9 cm/sec MV dec slope: 372.1 cm/sec2 Ao V2 mean: 77.7 cm/sec MV mean P.4 mmHg Ao mean P.7 mmHg MV V2 VTI: 24.4 cm MVA(P1/2t): 3.4 cm2 Ao V2 VTI: 23.1 cm AV (velocity ratio): 0.99 LV V1 max: 102.3 cm/sec PA V2 max: 110.9 cm/sec PI end-d chema: 126.0 cm/sec LV V1 max P.2 mmHg PA V2 mean: 73.0 cm/sec LV V1 mean P.1 mmHg LV V1 mean: 69.3 cm/sec LV V1 VTI: 22.8 cm TR max chema: 261.0 cm/sec TR max P.2 mmHg ECHO/Echo Complete Interpretation Summary Mild concentric left ventricular hypertrophy. The left ventricular ejection fraction is 60 %. Mildly dilated aortic root. Ordering Physician: Sapna Farrell Referring Physician: Nirav Lewis Performed By: Re Schreiber, JOE, RVT
--- NOTE | 2023-08-30 13:36 | STRESSREP ---
Stress Test Report Date: 08/30/2023 Procedure: Exercise tolerance test/imaging study Indications: Dyspnea on exertion Consent: Per the patient Procedure: The patient exercised on a Robert protocol for 7 minutes and 31 seconds achieving a peak heart rate of 129 bpm (83% predicted maximal heart rate) with a peak blood pressure 182/84 mmHg and a peak MET capacity of 10.1 METs. The baseline ECG demonstrated sinus rhythm. The peak exercise ECG demonstrated no ischemic changes. Occasional PVC noted. The functional capacity was considered average. There was no complaint of chest discomfort during exercise or recovery. The examination was discontinued secondary to target heart rate being achieved and dyspnea. The patient was injected with 14.2 mCi of technetium 99m Cardiolite and subsequently rest SPECT Cardiolite nuclear imaging was obtained in the horizontal long, vertical long, and short axis views. Post-exercise, the patient was injected with 44.1 mCi of technetium 99m Cardiolite and subsequently stress SPECT Cardiolite nuclear imaging was obtained in the horizontal long, vertical long, and short axis views. A gated Cardiolite study at peak stress was obtained. Rest and stress SPECT Cardiolite nuclear imaging status post realignment, normalization, and attenuation correction, demonstrates a possible mild perfusion defect of the apex post exercise. There is end systolic thickening and brightening. The gated Cardiolite study demonstrates myocardial thickening and inward wall motion. The reported LVEF is 72%. Impression: 1. Technically adequate (percent predicted maximal heart rate greater than 85%) exercise tolerance test 2. Peak exercise ECG with no ischemic changes 3. Occasional PVCs noted 4. Rest and stress SPECT Cardiolite nuclear imaging demonstrate possible mild reversible perfusion defect of the apex post exercise. Recommend correlation with another modality such as coronary CT angio if clinically indicated.. 5. The gated Cardiolite study reports an LVEF of 72%. This note was generated with [employer] software. It may contain incorrect words, spelling, and punctuation that were not noted in checking the note before signing.
== END | disposition home or self-care (01) ==
PROVIDERS: PCP Family Medicine; Referring Provider Internal Medicine Cardiovascular Disease; Visit Provider Internal Medicine Cardiovascular Disease
DX: R06.09 Other forms of dyspnea (principal); E11.9 Type 2 diabetes mellitus without complications; R00.2 Palpitations; E66.9 Obesity, unspecified; E78.5 Hyperlipidemia, unspecified; I10 Essential (primary) hypertension
CPT/HCPCS: 78452; 93017; 93306; A9500

== ENCOUNTER → 2023-09-28 | Outpatient (CLI) | payer MEDICARE, OTHER, SELFPAY ==
--- NOTE | 2023-09-28 12:41 | CT_ITS ---
INDICATION: ABN STRESS, limited chest over read only EXAMINATION: CT CHEST WITHOUT CONTRAST - CT Chest W/O Contrast Injection TECHNIQUE: Helically acquired images were obtained of the chest. A radiation dose optimization technique was used for this scan. IV Contrast dosage and agent: None. COMPARISON: None. FINDINGS: LUNGS, PLEURA AND LARGE AIRWAYS: No masses, consolidation, or edema. No pleural effusion or thickening. No pneumothorax. THYROID: No thyroid lesions. HEART AND PERICARDIUM: Heart size is normal. No pericardial effusion. CORONARY ARTERIES: Minimal coronary artery calcification is seen. VESSELS: Thoracic aorta is not dilated. MEDIASTINUM AND KINZA: Small mediastinal lymph nodes. Esophagus is unremarkable. No hiatal hernia. UPPER ABDOMEN: No acute pathology. BONES: No suspicious lytic or blastic abnormality. CT/Limited Chest CT Cardiac Only IMPRESSION: Minimal coronary calcification. Electronically Signed: Matias Solorio MD at 15:35 EDT ,
[2023-09-28 12:54] VITALS: BP 137/70; PULSE 69; RESP 18; TEMP 36.1; O2SAT 96; BMI 29.8
[2023-09-28] MEDS: 0.9% Saline Lock 10 ML Syringe IV (12:59)
[2023-09-28 13:25] VITALS: BP 118/67; PULSE 72
[2023-09-28] MEDS: Nitroglycerin SL (ED/IMG/CATH) 0.4 MG TABLET SL (13:25)
[2023-09-28 13:31] VITALS: BP 118/62; PULSE 72; RESP 18
--- NOTE | 2023-10-10 15:10 | CCTA_ITS ---
CCTA w/Cont Coronary Arteries Date of Study:: 09/28/23 Abnormal stress test Coronary Calcium Scoring: High-resolution Computed Tomographic imaging of the chest was performed on [09/28/23 ], with particular attention paid to the coronary arteries. Intravenous contrast agent was administered per protocol and images reconstructed and displayed. LEFT MAIN CORONARY ARTERY: Arises from the left main coronary cusp and is noted to be normal with a coronary calcium score of 0 [] LEFT ANTERIOR DESCENDING CORONARY ARTERY: Arises from the left main coronary artery. The proximal section appears to have mixed texture plaque with saranya roximately 30 to 40% stenosis. Small eccentric calcified plaque is noted with no significant stenosis present. Calcium score of 2.4 [] LEFT CIRCUMFLEX CORONARY ARTERY: Nondominant vessel with no significant calcified atherosclerotic plaquing noted. There is soft plaque noted in the proximal region coronary calcium score of 0 [] RIGHT CORONARY ARTERY: Dominant vessel arising from the right coronary cusp with no significant atherosclerotic plaquing noted. [] THORACIC AORTA: [] PULMONARY ARTERY: [] LEFT ATRIUM/APPENDAGE: [] MITRAL VALVE: [] AORTIC VALVE: [] LEFT VENTRICLE: [] CORONARY CALCIUM SCORE: 2.46. Conclusion: CT angiogram with no evidence of obstructive atherosclerotic plaquing noted. Soft plaque is noted in the LAD and circumflex artery. []
== END | disposition home or self-care (01) ==
LOC: CT 12:39
PROVIDERS: PCP Family Medicine; Referring Provider Nurse Practitioner Gerontology; Visit Provider Nurse Practitioner Gerontology
DX: R94.39 Abnormal result of other cardiovascular function study (principal)
CPT/HCPCS: 75571; 75574; 76380; Q9967